=== PATIENT | female | born 1965 | race Caucasian/White ===

== ENCOUNTER → 2019-05-30 | Outpatient (CLI) | payer OTHER ==
--- NOTE | 2019-05-30 13:05 | MR ---
EXAMINATION TYPE: MR shoulder RT wo con DATE OF EXAM: 05/30/2019 COMPARISON: Plain film 05/22/2019 HISTORY: Pain in right shoulder TECHNIQUE: Multiplanar, multisequence imaging of the right shoulder is performed without contrast. FINDINGS: Rotator Cuff: There is some increased signal associated with the rotator cuff tendon near its inserti on, difficult to exclude a partial undersurface tear, there is likely tendinosis. Acromioclavicular Joint: Hypertrophic changes present at the acromioclavicular joint. Glenohumeral Joint: Intact Labrum: The labrum appears grossly intact given limitation of non-arthrogram study. Biceps Tendon: The long head of biceps is in normal location within bicipital groove. There is some f luid signal coursing along the long head of biceps tendon Bone marrow signal: There is abnormal low signal within the humeral head in the subchondral location, some local remodeling is present, some serpiginous low signal on T1 and T2 weighted sequences as wel l as intermediate signal on T1 and abnormal increased signal on T2-weighted sequences within the anais ral head suggests osteonecrosis, difficult to exclude some mild collapse Other: There is fluid in the subacromial subdeltoid bursa. IMPRESSION: Findings suggest osteonecrosis with possible microtrabecular fractures, humeral head remodeling possi thomas related to collapse. There may be some associated rotator cuff tendinosis as described.
== END | disposition home or self-care (01) ==
LOC: RADMRIMAIN 11:09
PROVIDERS: ATTEND Orthopaedic Surgery
DX: M25.511 Pain in right shoulder (principal)

== ENCOUNTER → 2019-06-07 | Outpatient (CLI) | payer OTHER ==
--- NOTE | 2019-06-07 09:59 | XR ---
EXAMINATION TYPE: XR chest 2V DATE OF EXAM ORDERED: 06/07/2019 HISTORY: Z01.818/M87.011. REFERENCE: None. FINDINGS: The lungs are clear. Pleural spaces are clear. Heart size is normal. IMPRESSION: NORMAL CHEST.
[2019-06-07 10:49] LABS: Basophils # (A) 0.1 k/uL (0-0.2); Basophils % (A) 1 %; Eosinophils # (A) 0.1 k/uL (0-0.7); Eosinophils % (A) 2 %; HCT 42.6 % (34.0-46.0); HGB 14.1 gm/dL (11.4-16.0); Lymphocytes # (A) 2.3 k/uL (1.0-4.8); Lymphocytes % (A) 36 %; MCH 36.4 pg (25.0-35.0); MCHC 33.1 g/dL (31.0-37.0); Macrocytosis Marked; Mean Platelet Volume 7.6; Monocytes # (A) 0.3 k/uL (0-1.0); Monocytes % (A) 5 %; Neutrophils # (A) 3.4 k/uL (1.3-7.7); Neutrophils % (A) 54 %; Platelet Count 180 k/uL (150-450); RBC 3.87 m/uL (3.80-5.40); RDW 13.9 % (11.5-15.5); WBC 6.4 k/uL (3.8-10.6)
== END | disposition home or self-care (01) ==
LOC: LABPAT 09:24
PROVIDERS: ATTEND Orthopaedic Surgery
DX: Z01.818 Encounter for other preprocedural examination (principal); Z01.812 Encounter for preprocedural laboratory examination; M87.011 Idiopathic aseptic necrosis of right shoulder
CPT/HCPCS: 36415; 71046; 80051; 85025; 93005

== ENCOUNTER 2019-06-24 08:30 | Inpatient (IN) | payer OTHER ==
[2019-06-13 12:47] VITALS: BMI 26.2
--- NOTE | 2019-06-23 08:49 | HP ---
HISTORY AND PHYSICAL CHIEF COMPLAINT: Right shoulder pain. HISTORY OF PRESENT ILLNESS: Patient is a 54-year-old, right-hand dominant, unemployed female who presents with progressive right shoulder pain worsening over the past 6 months. She is having a difficult time with any overhead activity. She also notes significant night symptoms. She has stiffness and pain with normal everyday activities. She has been taking Dawson 4 times a day. She has a history of chronic steroid use along with heavy alcohol use. PAST MEDICAL HISTORY: Significant for depression. PAST SURGICAL HISTORY: Significant for colonoscopy and hysterectomy. CURRENT MEDICATIONS: 1. Baclofen. 2. Celexa. 3. Effexor. 4. Klonopin. 5. Dawson. 6. Seroquel. ALLERGIES: She has allergies to BACTRIM. FAMILY HISTORY: Significant for cancer. SOCIAL HISTORY: Significant for previous tobacco use. She also admits to heavy alcohol use. REVIEW OF SYSTEMS: Sixteen-point review of systems otherwise reviewed and is noncontributory. PHYSICAL EXAMINATION: On examination, the patient is approximately 5 feet 3 inches, 150 pounds of mesomorphic habitus. HEENT exam is nonfocal. Neck is supple. She is tender about the anterior glenohumeral joint on the right. She has moderate subacromial crepitus. Active range of motion forward elevation 160 degrees, external rotation with arm at side 60 degrees, internal rotation to L2. Motor strength is 5 minus over 5 for abduction and external rotation. Impingement test, Neer test, and Speed test are positive. Her distal neurovascular exam otherwise appears to be intact in the right upper extremity. MRI report 05/30/2019 of the right shoulder shows evidence of avascular necrosis involving the humeral head. The rotator cuff appears intact. IMPRESSION: 1. 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 2. Bipolar depression. RECOMMENDATIONS: I talked to the patient at length regarding her condition along with treatment options. At this point, she is quite symptomatic and opts to proceed with surgery. We will plan to proceed with right shoulder hemiarthroplasty. Risks and benefits were discussed at length in layman's terms. MMODL / IJN: [id number] /
[~2019-06-24 08:30] MED LIST: ACETAMINOPHEN TAB 500 MG TAB PO ONE; DEXAMETHASONE SOD PHOSPHATE 10 MG/ML 1 ML VIAL IV ONE; HYDROmorphone 0.5 MG/0.5 ML SYRINGE IVP PRN; MELOXICAM 7.5 MG TAB PO ONE; MIDAZOLAM 2 MG/2 ML VIAL IV PRN; ONDANSETRON 4 MG/2 ML VIAL IVP ONE; SCOPOLAMINE 1.5MG/72HR PATCH TRANSDERM ONE; TRANEXAMIC ACID 1,000 MG in SODIUM CHLORIDE 0.9% 100 ML IVPB ONE
[2019-06-24] MEDS: LACTATED RINGERS 1,000 ML IV SCH (09:13)
[2019-06-24] MEDS ORDERED: ONDANSETRON 4 MG/2 ML VIAL IVP ONE (09:14)
[2019-06-24] MEDS ORDERED: DEXAMETHASONE SOD PHOSPHATE 10 MG/ML 1 ML VIAL IV ONE (09:14)
[2019-06-24] MEDS ORDERED: SODIUM CHLORIDE 0.9% 100 ML BAG ONE (11:05)
[2019-06-24] MEDS ORDERED: fentaNYL (PF) 50 MCG/ML 2 ML AMP ONE (11:05)
[2019-06-24] MEDS ORDERED: LIDOCAINE 1% INJ 10MG/ML (20 ML MDV) ONE (11:05)
[2019-06-24] MEDS ORDERED: TRANEXAMIC ACID 1,000 MG/10 ML VIAL ONE (11:05)
[2019-06-24] MEDS ORDERED: PROPOFOL 10 MG/ML 20 ML VIAL IV ONE (11:05)
[2019-06-24] MEDS ORDERED: SUCCINYLCHOLINE CHLORIDE 100 MG/5 ML SYR IV ONE (11:05)
[2019-06-24] MEDS ORDERED: ROPIVACAINE 5 MG/ML 30 ML VIAL ONE (11:05)
[2019-06-24] MEDS ORDERED: MIDAZOLAM 2 MG/2 ML VIAL ONE (11:05)
[2019-06-24] MEDS ORDERED: LACTATED RINGERS 1,000 ML IV ONE (12:37)
[2019-06-24] MEDS ORDERED: ONDANSETRON 4 MG/2 ML VIAL IVP PRN (12:41)
--- NOTE | 2019-06-24 12:57 | P.ANPRN ---
Procedure Note - Anesthesia - Nerve Block Performed Right Interscalene Date of Procedure: 06/24/19 Procedure Start Time: 09:24 Procedure Stop Time: 09:41 Location of Patient Procedure: PreOp Indication: Acute Post-Operative Pain, Requested by physician (Fadi) Sedation Type: Sedate with meaningful contact maintained Preparation: Sterile Prep Position: Supine Catheter: None Needle Types: Pajunk (22g) Technique: Ultrasound Injectate: 0.5% Ropivacaine (see comment for volume) (20cc, decadron 4mg) Blood Aspirated: No Pain Paresthesia on Injection Noted: No Resistance on Injection: Normal Events: Uneventful and Well Tolerated
--- NOTE | 2019-06-24 13:04 | P.OP ---
Date of Procedure: 06/24/19 Preoperative Diagnosis: Right humeral head avascular necrosis Postoperative Diagnosis: Same Procedure(s) Performed: Right shoulder hemiarthroplastypress-fit Implants: [employer] size 10/standard metaphysis/135 with 44 x 15 mm eccentric humeral head Anesthesia: denis HOLT Surgeon: Anshu Aponte Machine Setter And Repairer #1: Peng Thompson Estimated Blood Loss (ml): 150 Pathology: other (Humeral head) Condition: stable Disposition: PACU Indications for Procedure: The patient's a 54-year-old female who presents with progressive right shoulder pain secondary to avascular necrosis of the humeral head likely from chronic steroid use/alcohol use. A discussion of the risks and benefits of operative intervention was made with patient. She opted to proceed with surgery. Operative risks to include infection, neurovascular injury, development of blood clots, possible component loosening, possible instability, possible progression of arthritis was discussed. Informed consent was obtained. Operative Findings: As below Description of Procedure: The patient was brought to the operating room, and after induction of general anesthesia was placed in a beachchair position. The bony prominences were appropriately padded. The proposed incision site was outlined with a skin marker just lateral to the coracoid process. Skin was incised sharply. Subcutaneous tissues were divided bluntly. Electrocautery was used for hemostasis. The deltopectoral interval was identified and the cephalic vein was gently retracted laterally with the deltoid. Subdeltoid adhesions were bluntly dissected. The upper one third of the pectoralis major was released to facilitate exposure. The biceps was identified in the rotator interval opened. The biceps was tenotomized and lateral track distally. The cortical brachialis fascia was then opened and the conjoined tendon gently retracted medially with a self-retaining retractor. A lesser tuberosity osteotomy was performed with a sagittal saw. The capsule was then released from the humeral neck subperiosteally. The humeral head was exposed. The shoulder was dislocated. A starting hole was made in line with the humeral shaft and the canal reamed by hand up to a size 10. The cutting guide was then placed planning on 30 of retroversion. The humeral head cut was then made. This bone was sent for pathology. There appeared to be subchondral collapse. The proximal humerus was then prepared with the appropriate broach. A trial size 10/standard neck along with a 44 elevator by 15 mm eccentric head was placed. The shoulder was gently reduced. It was taken through range of motion. It was felt to be stable in flexion and extension with internal and external rotation. I felt there was adequate catholic of soft tissue tension. The shoulder was gently dislocated. The biceps was released from the superior labrum. The labrum and glenoid was inspected and the cartilage appeared to be adequate. 2 drill holes were made lateral in the proximal humerus for reattachment of the lesser tuberosity. The humeral stem was inserted again at 30 of retroversion was fully seated. There is good bone stock therefore cement was not utilized. There was good rotational stability. The 44 x 15 mm eccentric head was then placed and gently impacted. The shoulder was gently reduced. Again it was taken through range of motion felt to be stable. The lesser tuberosity osteotomy was reattached with #2 Ethibond suture. The rotator interval was closed in a similar fashion. Pulsatile lavage was utilized. The deltopectoral interval was closed with interrupted 2-0 Vicryl sutures. The skin was reapproximated with 3-0 subcuticular Prolene suture. Steri-Strips were applied. Sterile dressing was applied in addition to a sling. Patient was awoken from general anesthesia and transferred to recovery room in good condition. Blood loss was estimated at 150 mL. No complications were incurred. Sponge and needle counts were correct in the case. Rod KNOX assisted during the case to include exposure, bone preparation, implantation, and closure.
--- NOTE | 2019-06-24 15:05 | XR ---
EXAMINATION TYPE: XR shoulder complete RT DATE OF EXAM: 06/24/2019 COMPARISON: NONE HISTORY: Postop TECHNIQUE: Frontal view of the shoulder is obtained. FINDINGS: Right shoulder arthroplasty with intramedullary component well-seated within the cavity. No periprosthetic lucency or fracture. Visualized portions of the right lung is clear. IMPRESSION: Right shoulder arthroplasty.
[2019-06-24] MEDS ORDERED: LORazepam 1 MG TAB PO STA (17:53)
--- NOTE | 2019-06-24 17:53 | P.CONS ---
History of Present Illness - Reason for Consult Consult date: 06/24/19 neuropathy Requesting physician: Anshu Aponte - Chief Complaint right shoulder pain - History of Present Illness Patient is a 54-year-old female with a past medical history of chronic back and neck pain, optic neuritis, osteoporosis, depression, restless legs syndrome, neuropathy, and chronic alcohol abuse who presented for elective right shoulder hemiarthroplasty. Patient tolerated procedure well. Patient seen and examined at bedside. She reports that her last drink was 4 days ago she typically drinks 1-2 mixed drinks daily during the week and 3 mixed drinks on the weekend. She has noted some sweating as well as restlessness. She reports no recent cough, cold, fever, chills, nausea, vomiting, or diarrhea. She has chronic issues with urinary retention for the last 2 months and has planned procedure to treat her lumbar disc herniation which her physician has determined is likely causing this. She reports that she has no history of alcohol withdrawals in the past. She has not had any issues stopping alcohol prior but is noting significant diaphoresis. She denies any nausea, vomiting, lightheadedness, dizziness, chest pain, shortness of breath after surgery. Her right arm is still numb. Review of Systems Pertinent positives and negatives as discussed in HPI, a complete review of systems was performed and all other systems are negative. Past Medical History Past Medical History: Eye Disorder, Musculoskeletal Disorder, Osteoarthritis (OA) Additional Past Medical History / Comment(s): optic neuritis eyes-sight mostly gone right eye, herniated discs in neck & back with neuropathy, osteoporosis, Restless leg, restless leg syndrome, osteoporosis, bilateral ocular hypertension, arthritis History of Any Multi-Drug Resistant Organisms: None Reported Past Surgical History: Heart Catheterization (2, no intervention needed), Hysterectomy Additional Past Surgical History / Comment(s): EGD w/dilatation, colonoscopy Past Anesthesia/Blood Transfusion Reactions: No Reported Reaction Past Psychological History: Anxiety, Depression Smoking Status: Former smoker Past Alcohol Use History: Heavy, Occasional Additional Past Alcohol Use History / Comment(s): Drinks 1-2 mixed drinks daily and 3-4 drinks on the weekends Past Drug Use History: Marijuana Additional Drug Use History / Comment(s): rare use - Past Family History Brother(s) Family Medical History: Cancer Additional Family Medical History / Comment(s): brain, stomach Sister(s) Family Medical History: Cancer Additional Family Medical History / Comment(s): brain Medications and Allergies Home Medications Medication Instructions Recorded Confirmed Type Baclofen [Lioresal] 20 mg PO TID 06/13/19 06/24/19 History Citalopram Hydrobromide [CeleXA] 10 mg PO DAILY 06/13/19 06/24/19 History HYDROcodone/APAP 7.5-325MG [[place] 1 tab PO QID 06/13/19 06/24/19 History 7.5-325] QUEtiapine [SEROquel] 25 mg PO HS 06/13/19 06/24/19 History Venlafaxine HCl [Effexor XR] 150 mg PO HS 06/13/19 06/24/19 History clonazePAM [KlonoPIN] 3 mg PO HS 06/13/19 06/24/19 History Venlafaxine HCl [Effexor XR] 75 mg PO HS 06/24/19 06/24/19 History Allergies Allergy/AdvReac Type Severity Reaction Status Date / Time sulfamethoxazole Allergy Rash/Hives Verified 06/24/19 15:53 [From Bactrim] trimethoprim [From Bactrim] Allergy Rash/Hives Verified 06/24/19 15:53 Physical Exam Osteopathic Statement: *. No significant issues noted on an osteopathic structural exam other than those noted in the History and Physical/Consult. Vitals: Vital Signs Temp Pulse Pulse Resp BP Pulse Ox 06/24/19 16:50 98 F 81 16 108/75 94 L 06/24/19 15:30 83 16 95/73 94 L 06/24/19 15:00 86 16 97/73 94 L 06/24/19 14:45 86 16 103/70 93 L 06/24/19 14:30 88 16 102/72 93 L 06/24/19 14:15 88 16 94/67 92 L 06/24/19 14:00 90 16 102/66 93 L 06/24/19 13:42 91 16 105/70 93 L 06/24/19 13:27 87 16 106/68 100 06/24/19 13:12 92 18 106/61 100 06/24/19 12:57 97.1 F L 100 18 105/64 99 06/24/19 09:39 75 17 109/72 98 08/13/19 09:01 97.8 F 76 17 126/79 96 Intake and Output 06/24/19 06/24/19 06/24/19 06:59 14:59 22:59 Intake Total 1150 150 Output Total 150 Balance 1000 150 Intake: IV 1150 150 Output: Estimated Blood Loss 150 Other: Weight 67.642 kg General: non toxic, no distress, appears at stated age, normal weight Derm: no unusual rashes/lesions no unusual ecchymoses, warm, dry Head: atraumatic, normocephalic, symmetric Eyes: EOMI, no lid lag, anicteric sclera, pupils equal round reactive to light ENT: Nose and ears atraumatic, no thrush, no pharyngeal erythema Neck: No thyromegaly, no cervical lymphadenopathy, trachea midline, supple Mouth: no lip lesion, mucus membranes moist Cardiovascular: S1S2 reg, no murmur, positive posterior tibial pulse bilateral, no edema, capillary refill less than 2 seconds Lungs: Breath sounds bilateral, no rhonchi, no rales , no accessory muscle use Abdominal: soft, nontender to palpation, no guarding, no appreciable organomegaly, normal bowel sounds Ext: no gross muscle atrophy, muscle strength 5 out of 5 bilateral lower extremities grossly and left upper, no contractures, Neuro: CN II-XI grossly intact, finger to nose within normal limits, Psych: Alert, oriented, appropriate affect Assessment and Plan Assessment: Patient is a 54-year-old female status post right shoulder hemiarthroplasty due to to avascular necrosis. Alcohol abuse with impending withdrawal -Start thiamine and folic acid -Librium 10 mg 1 now and [facility] protocol -Check potassium and magnesium in the morning Bipolar depression -Resume home medications Chronic low back and neck pain with neuropathy -Resume baclofen, [place] Chronic: Osteoporosis, optic neuritis, right ocular hypertension, restless leg syndrome Thank you for allowing us to participate in the care of this patient. We will follow peripherally. Do not hesitate to contact us with questions. Someone can be reached from the [facility] hospitalist group at all hours of the day at [phone].
[2019-06-24] MEDS ORDERED: LORazepam 2 MG/ML INJ IV PRN ×2 (17:54)
[2019-06-24] MEDS: traMADol 50 MG TAB PO SCH ×3 (18:17→21:03)
[2019-06-24] MEDS: THIAMINE 100 MG TAB PO SCH ×2 (18:21→18:22)
[2019-06-24] MEDS: VENLAFAXINE HCL ER 150 MG CAP PO SCH (21:04)
[2019-06-24] MEDS: QUEtiapine 25 MG TAB PO SCH (21:04)
[2019-06-24] MEDS: VENLAFAXINE HCL ER 75 MG CAP PO SCH (21:04)
[2019-06-24] MEDS: clonazePAM 1 MG TAB PO SCH (21:05)
[2019-06-24] MEDS: BACLOFEN 10 MG TAB PO SCH (21:06)
[2019-06-24] MEDS: HYDROcodone/APAP 7.5-325MG 1 EACH TAB PO PRN (22:23)
[2019-06-25] MEDS: LACTATED RINGERS 1,000 ML IV SCH (02:05)
[2019-06-25] MEDS: HYDROcodone/APAP 7.5-325MG 1 EACH TAB PO PRN ×3 (06:18→16:58)
[2019-06-25] MEDS: THIAMINE 100 MG TAB PO SCH ×2 (07:30→16:59)
[2019-06-25] MEDS: traMADol 50 MG TAB PO SCH ×4 (07:30→21:07)
[2019-06-25] MEDS: CITALOPRAM HYDROBROMIDE 10 MG TAB PO SCH (07:30)
[2019-06-25] MEDS: ENOXAPARIN 40 MG/0.4 ML SYRINGE SQ SCH (07:31)
[2019-06-25] MEDS: BACLOFEN 10 MG TAB PO SCH ×3 (07:33→21:08)
[2019-06-25 08:04] LABS: African American GFR (CKD) >90 (>60 ml/min/1.73 sqM); Glucose 136 mg/dL (74-99); Magnesium 1.6 mg/dL (1.6-2.3); Potassium 4.5 mmol/L (3.5-5.1); Sodium 141 mmol/L (137-145)
[2019-06-25 08:20] LABS: Anion Gap 11 mmol/L; Blood Urea Nitrogen 16 mg/dL (7-17); Calcium 9.6 mg/dL (8.4-10.2); Carbon Dioxide 23 mmol/L (22-30); Chloride 107 mmol/L (98-107)
[2019-06-25 08:28] LABS: Basophils % (A) 0 %; Eosinophils % (A) 0 %; HCT 35.1 % (34.0-46.0); HGB 11.2 gm/dL (11.4-16.0); Lymphocytes # (A) 0.9 k/uL (1.0-4.8); Lymphocytes % (A) 7 %; MCH 34.5 pg (25.0-35.0); MCHC 31.9 g/dL (31.0-37.0); MCV 108.1 fL (80.0-100.0); Macrocytosis Moderate; Mean Platelet Volume 8.8; Monocytes # (A) 0.4 k/uL (0-1.0); Monocytes % (A) 3 %; Neutrophils # (A) 11.3 k/uL (1.3-7.7); Neutrophils % (A) 89 %; Platelet Count 190 k/uL (150-450); RBC 3.24 m/uL (3.80-5.40); RDW 13.2 % (11.5-15.5); WBC 12.7 k/uL (3.8-10.6)
--- NOTE | 2019-06-25 11:07 | P.PN ---
Subjective Progress Note Date: 06/25/19 Principal diagnosis: Status post right shoulder hemiarthroplasty Patient evaluated today at bedside, she is resting comfortably. She states the block is started to wear off and the right upper extremity. Patient did note she had a fall early this morning when attempting to get out of bed, I also discussed this with nursing. She was able to catch herself with the left arm. She notes no worsening of her acute pain involving the right upper extremity. Currently denies any chest pain or shortness of breath. Objective - Vital Signs Vital signs: Vital Signs Temp 97.8 F 06/25/19 07:00 Pulse 70 06/25/19 07:00 Resp 16 06/25/19 07:40 BP 97/67 06/25/19 07:00 Pulse Ox 98 06/25/19 07:00 Intake & Output 06/24/19 06/25/19 06/25/19 18:59 06:59 18:59 Intake Total 1300 1020 Output Total 150 300 Balance 1150 720 Weight 67.642 kg Intake: IV 1300 Intake, IV Titration 820 Amount Lactated Ringers 1,000 ml 720 @ 80 mls/hr IV .[id number] JÚNIOR Rx#:[id number] ceFAZolin 2 gm In Sodium 100 Chloride 0.9% 50 ml @ 100 mls/hr IVPB Q8H [facility] Rx#: [id number] Oral 200 Output: Urine 300 Estimated Blood Loss 150 Other: Voiding Method Incontinent # Voids 2 - Exam Right upper extremity: Initial postoperative bandage removed, Steri-Strips and Prolene suture in good position Soft tissue swelling and ecchymosis present throughout the anterior shoulder and into the anterior upper arm Her sensory exam to light touch throughout the extremities intact, radial pulses 2+ - Labs CBC & Chem 7: 06/25/19 06:40 06/25/19 06:40 Labs: Abnormal Lab Results - Last 24 Hours (Table) 06/25/19 06/25/19 Range/Units 06:40 06:40 WBC 12.7 H (3.8-10.6) k/uL RBC 3.24 L (3.80-5.40) m/uL Hgb 11.2 L (11.4-16.0) gm/dL MCV 108.1 H (80.0-100.0) fL Neutrophils # 11.3 H (1.3-7.7) k/uL Lymphocytes # 0.9 L (1.0-4.8) k/uL Glucose 136 H (74-99) mg/dL Assessment and Plan Plan: Assessment: Postoperative day #1 status post right shoulder hemiarthroplasty Plan: Pain control, continue oral medication as needed GI and DVT prophylaxis, continue current medication Continue use of arm sling and pendular exercises Icing of the right upper extremity often Medical recommendations Discharge planning: Plan for discharge home tomorrow Time with Patient: Less than 30
[2019-06-25] MEDS: LORazepam 2 MG/ML INJ IV PRN (11:29)
[2019-06-25] MEDS: PANTOPRAZOLE 40 MG TABLET PO SCH (11:29)
--- NOTE | 2019-06-25 17:17 | P.PN ---
Subjective Progress Note Date: 06/25/19 (Delayed charting patient seen on 11:15) Principal diagnosis: Right arm pain Patient is a 54-year-old female with a past medical history of chronic back and neck pain, optic neuritis, osteoporosis, depression, restless legs syndrome, neuropathy, and chronic alcohol abuse who presented for elective right shoulder hemiarthroplasty. Patient tolerated procedure well. She did attempt to ambulate after surgery on 06/24 had a fall where she shock her head. She did not follow any neurologic deficits. Patient seen and examined at bedside. She denies any headache, numbness, or tingling. She is having some tremor, diaphoresis, and anxiety. She denies any chest pain or shortness of breath. She does report some lightheadedness when standing. Objective - Vital Signs Vital signs: Vital Signs Temp 97.9 F 06/25/19 14:03 Pulse 83 06/25/19 14:03 Resp 16 06/25/19 14:03 BP 147/66 06/25/19 14:02 Pulse Ox 90 L 06/25/19 14:03 Intake & Output 06/24/19 06/25/19 06/25/19 18:59 06:59 18:59 Intake Total 1300 1020 Output Total 150 300 250 Balance 1150 720 -250 Weight 67.642 kg Intake: IV 1300 Intake, IV Titration 820 Amount Lactated Ringers 1,000 ml 720 @ 80 mls/hr IV .[id number] JÚNIOR Rx#:[id number] ceFAZolin 2 gm In Sodium 100 Chloride 0.9% 50 ml @ 100 mls/hr IVPB Q8H JÚNIOR Rx#: [id number] Oral 200 Output: Urine 300 250 Estimated Blood Loss 150 Other: Voiding Method Incontinent # Voids 2 - Exam General: non toxic, no distress, appears at stated age Derm: warm, dry Head: atraumatic, normocephalic, symmetric Eyes: EOMI, no lid lag, anicteric sclera Mouth: no lip lesion, mucus membranes moist Cardiovascular: S1S2 reg, no murmur, positive posterior tibial pulse bilateral, Lungs: CTA bilateral, no rhonchi, no rales , no accessory muscle use Abdominal: soft, nontender to palpation, no guarding, no appreciable or ganomegaly Ext: Right arm in sling., no gross muscle atrophy, no edema, no contractures Neuro: CN II-XI grossly intact, no focal neuro deficits Psych: Alert, oriented, appears anxious - Labs CBC & Chem 7: 06/25/19 06:40 06/25/19 06:40 Labs: Abnormal Lab Results - Last 24 Hours (Table) 06/25/19 06/25/19 Range/Units 06:40 06:40 WBC 12.7 H (3.8-10.6) k/uL RBC 3.24 L (3.80-5.40) m/uL Hgb 11.2 L (11.4-16.0) gm/dL MCV 108.1 H (80.0-100.0) fL Neutrophils # 11.3 H (1.3-7.7) k/uL Lymphocytes # 0.9 L (1.0-4.8) k/uL Glucose 136 H (74-99) mg/dL Assessment and Plan Assessment: Patient is a 54-year-old female status post right shoulder hemiarthroplasty due to to avascular necrosis. Alcohol abuse with impending withdrawal -thiamine and folic acid -[facility] protocol Bipolar depression -Resume home medications Acute blood loss anemia - anticipated outcome if surgery - follow CBC - should resolve without specific intervention Chronic low back and neck pain with neuropathy -Resume baclofen, [place] Fall -No focal neuro deficits -Headache is resolved GERD - start PPI Lightheadedness -Likely secondary to pain medications -Check orthostatics Chronic: Osteoporosis, optic neuritis, right ocular hypertension, restless leg syndrome DVT prophylaxis: Lovenox Discussed with: Patient, nursing Anticipated discharge: in AM Anticipated discharge place: home A total of 25 minutes was spent on the care of this complex patient more than 50% of the time was spent in counseling and care coordination.
[2019-06-25] MEDS: VENLAFAXINE HCL ER 150 MG CAP PO SCH (21:07)
[2019-06-25] MEDS: QUEtiapine 25 MG TAB PO SCH (21:07)
[2019-06-25] MEDS: VENLAFAXINE HCL ER 75 MG CAP PO SCH (21:07)
[2019-06-25] MEDS: clonazePAM 1 MG TAB PO SCH (21:08)
[2019-06-26] MEDS: LACTATED RINGERS 1,000 ML IV SCH (06:33)
[2019-06-26] MEDS: BACLOFEN 10 MG TAB PO SCH (07:48)
[2019-06-26] MEDS: HYDROcodone/APAP 7.5-325MG 1 EACH TAB PO PRN ×3 (07:48→20:07)
[2019-06-26] MEDS: traMADol 50 MG TAB PO SCH ×2 (07:48→12:40)
[2019-06-26] MEDS: THIAMINE 100 MG TAB PO SCH ×2 (07:48→16:18)
[2019-06-26] MEDS: ENOXAPARIN 40 MG/0.4 ML SYRINGE SQ SCH (07:49)
[2019-06-26] MEDS: CITALOPRAM HYDROBROMIDE 10 MG TAB PO SCH (07:49)
[2019-06-26] MEDS: PANTOPRAZOLE 40 MG TABLET PO SCH (07:49)
[2019-06-26] MEDS: LORazepam 2 MG/ML INJ IV PRN ×4 (09:14→21:56)
--- NOTE | 2019-06-26 11:50 | CT ---
EXAMINATION TYPE: CT brain wo con DATE OF EXAM: 06/26/2019 COMPARISON: None HISTORY: altered mental status CT DLP: 1070.[address] of the head is obtained. The ventricles, basal cisterns and sulci overlying the conve xities are consistent with the patient's age. The calvarium is intact. No midline shift. IMPRESSION: 1. No evidence of acute hemorrhage or mass effect. If symptoms persist or there is continued clinica l concern for acute ischemia correlate with MRI.
--- NOTE | 2019-06-26 11:53 | XR ---
EXAMINATION TYPE: XR chest 1V portable DATE OF EXAM: 06/26/2019 COMPARISON: 06/07/2019 HISTORY: Shortness of breath TECHNIQUE: Single frontal view of the chest is obtained. FINDINGS: There is a new right perihilar opacity and right hemidiaphragm elevation. Large hiatal her polo as increased in size from the prior. Hazy retrocardiac airspace disease likely represents atelect asis. Remainder the lungs are clear. No sizable pneumothorax. Humeral arthroplasty is noted. IMPRESSION: 1. New right perihilar airspace disease with right hemidiaphragm elevation indicating volume loss the refore the opacity likely represents atelectasis although pneumonia is possible in the proper clinica l setting. 2. Enlarging hiatal hernia/partial intrathoracic stomach. Surrounding opacity likely represents atele ctasis.
--- NOTE | 2019-06-26 12:24 | P.PN ---
Subjective Progress Note Date: 06/26/19 Principal diagnosis: Status post right shoulder hemiarthroplasty Patient evaluated today at bedside, she is slightly agitated. Withdrawal symptoms are beginning, she is on CIWA protocol. Currently denies any chest pain or shortness of breath. Objective - Vital Signs Vital signs: Vital Signs Temp 97.9 F 06/26/19 07:00 Pulse 71 06/26/19 07:00 Resp 16 06/26/19 07:40 BP 120/72 06/26/19 07:00 Pulse Ox 90 L 06/26/19 09:51 Intake & Output 06/25/19 06/26/19 06/26/19 18:59 06:59 18:59 Intake Total 596 530 Output Total 250 Balance 346 530 Intake: Intake, IV Titration 480 Amount Lactated Ringers 1,000 ml 480 @ 80 mls/hr IV .[id number] JÚNIOR Rx#:[id number] Oral 596 50 Output: Urine 250 Other: Voiding Method Toilet Toilet # Voids 2 - Exam Right upper extremity: Steri-Strips and Prolene suture in good position Soft tissue swelling and ecchymosis present throughout the anterior shoulder and into the anterior upper arm Her sensory exam to light touch throughout the extremities intact, radial pulses 2+ - Labs CBC & Chem 7: 06/25/19 06:40 06/25/19 06:40 Assessment and Plan Plan: Assessment: Postoperative day #2 status post right shoulder hemiarthroplasty Plan: Pain control, continue oral medication as needed GI and DVT prophylaxis, continue current medication Continue use of arm sling and pendular exercises Icing of the right upper extremity often Medical recommendations Discharge planning: Plan for discharge home when stable Time with Patient: Less than 30
[2019-06-26] MEDS ORDERED: BISACODYL 5 MG TABLET.DR PO STA (15:13)
--- NOTE | 2019-06-26 16:38 | P.PN ---
Subjective Progress Note Date: 06/26/19 (dealyed charting seen at 1300) Principal diagnosis: Right arm pain Patient is a 54-year-old female with a past medical history of chronic back and neck pain, optic neuritis, osteoporosis, depression, restless legs syndrome, neuropathy, and chronic alcohol abuse who presented for elective right shoulder hemiarthroplasty. Patient tolerated procedure well. She did attempt to ambulate after surgery on 06/24 had a fall where she shock her head. She did not follow any neurologic deficits. Worsening confusion on the morning of 06/26. CT hear without acute abnormality. Patient seen and examined at bedside. Admits to confusion with hallucinations today. Pain is currently well controlled. No chest pain, shortness breath, nausea, or vomiting. Objective - Vital Signs Vital signs: Vital Signs Temp 98.2 F 06/26/19 14:18 Pulse 82 06/26/19 14:18 Resp 14 06/26/19 14:18 BP 119/72 06/26/19 14:18 Pulse Ox 96 06/26/19 14:18 Intake & Output 06/25/19 06/26/19 06/26/19 18:59 06:59 18:59 Intake Total 596 530 Output Total 250 Balance 346 530 Intake: Intake, IV Titration 480 Amount Lactated Ringers 1,000 ml 480 @ 80 mls/hr IV .[id number] JÚNIOR Rx#:[id number] Oral 596 50 Output: Urine 250 Other: Voiding Method Toilet Toilet # Voids 2 2 - Exam General: non toxic, no distress, appears at stated age Derm: warm, dry Head: atraumatic, normocephalic, symmetric Eyes: EOMI, no lid lag, anicteric sclera Mouth: no lip lesion, mucus membranes moist Cardiovascular: S1S2 reg, no murmur, positive posterior tibial pulse bilateral, Lungs: decreased bs bilateral, no rhonchi, no rales , no accessory muscle use Abdominal: soft, nontender to palpation, no guarding, no appreciable organomegaly Ext: Right arm in sling., no gross muscle atrophy, no edema, no contractures Neuro: CN II-XI grossly intact, no focal neuro deficits, no tremors Psych: Alert, confused, lethargic - Labs CBC & Chem 7: 06/25/19 06:40 06/25/19 06:40 Assessment and Plan Assessment: Patient is a 54-year-old female status post right shoulder hemiarthroplasty due to to avascular necrosis. Post op management per ortho Metabolic encephalopathy - head CT negative - check stat CBC, BMP, Ammonia, and UA - stop tramadol, baclofen, and klonopin and use ativan as needed for ETOH withdrawals Atelectasis - IS - frequent turns Alcohol abuse with impending withdrawal -thiamine and folic acid -CIWA protocol Acute blood loss anemia - anticipated outcome if surgery - follow CBC - should resolve without specific intervention Bipolar depression -continue current medications Chronic low back and neck pain with neuropathy -hold baclofen and tramadol Fall -No focal neuro deficits -Headache is resolved GERD - PPI Lightheadedness -Likely secondary to pain medications -Check orthostatics negative Chronic: Osteoporosis, optic neuritis, right ocular hypertension, restless leg syndrome DVT prophylaxis: Lovenox Discussed with: Patient, nursing Anticipated discharge: 1-[address]: home A total of 35 minutes was spent on the care of this complex patient more than 50% of the time was spent in counseling and care coordination.
[2019-06-26 17:03] LABS: HGB 10.9 gm/dL (11.4-16.0); Hypochromasia Moderate; MCH 36.8 pg (25.0-35.0); MCHC 33.1 g/dL (31.0-37.0); MCV 111.1 fL (80.0-100.0); Mean Platelet Volume 7.7; Platelet Count 154 k/uL (150-450); RBC 2.97 m/uL (3.80-5.40); WBC 9.9 k/uL (3.8-10.6)
[2019-06-26 17:05] LABS: Macrocytosis Moderate
[2019-06-26 17:15] LABS: ALT 15 U/L (9-52); AST 23 U/L (14-36); African American GFR (CKD) >90 (>60 ml/min/1.73 sqM); Albumin 3.8 g/dL (3.5-5.0); Alkaline Phosphatase 73 U/L (38-126); Anion Gap 8 mmol/L; Blood Urea Nitrogen 17 mg/dL (7-17); Calcium 9.2 mg/dL (8.4-10.2); Carbon Dioxide 26 mmol/L (22-30); Chloride 108 mmol/L (98-107); Glucose 91 mg/dL (74-99); Magnesium 1.6 mg/dL (1.6-2.3); Potassium 4.1 mmol/L (3.5-5.1); Sodium 142 mmol/L (137-145); Total Bilirubin 0.3 mg/dL (0.2-1.3); Total Protein 6.8 g/dL (6.3-8.2)
[2019-06-26 22:00] LABS: Appearance,Urine Clear (Clear); Bilirubin,Urine Negative (Negative); Blood,Urine Negative (Negative); Color,Urine Yellow; Glucose,Urine (UA) Negative (Negative); Ketones,Urine Negative (Negative); Leukocyte Esterase,Urine Negative (Negative); Nitrite,Urine Negative (Negative); PH, Urine 5.5 (5.0-8.0); Protein,Urine Trace (Negative); Specific Gravity,Urine 1.031 (1.001-1.035); Urobilinogen,Urine <2.0 mg/dL (<2.0)
[2019-06-26] MEDS: VENLAFAXINE HCL ER 75 MG CAP PO SCH (23:18)
[2019-06-26] MEDS: QUEtiapine 25 MG TAB PO SCH (23:18)
[2019-06-26] MEDS: VENLAFAXINE HCL ER 150 MG CAP PO SCH (23:18)
[2019-06-27] MEDS: HYDROcodone/APAP 7.5-325MG 1 EACH TAB PO PRN ×4 (02:28→23:41)
[2019-06-27] MEDS: LORazepam 2 MG/ML INJ IV PRN ×2 (03:52→18:09)
[2019-06-27] MEDS: LACTATED RINGERS 1,000 ML IV SCH (04:58)
[2019-06-27] MEDS: PANTOPRAZOLE 40 MG TABLET PO SCH (08:43)
[2019-06-27] MEDS: CITALOPRAM HYDROBROMIDE 10 MG TAB PO SCH (08:43)
[2019-06-27] MEDS: THIAMINE 100 MG TAB PO SCH ×2 (08:43→18:10)
[2019-06-27] MEDS: ENOXAPARIN 40 MG/0.4 ML SYRINGE SQ SCH (08:43)
--- NOTE | 2019-06-27 11:07 | P.PN ---
Subjective Progress Note Date: 06/27/19 Principal diagnosis: Status post right shoulder hemiarthroplasty Patient evaluated today at bedside. Patient doing better today, she is ambulate with therapy. Currently denies any chest pain or shortness of breath. Objective - Vital Signs Vital signs: Vital Signs Temp 98.3 F 06/27/19 07:00 Pulse 99 06/27/19 08:00 Resp 16 06/27/19 08:00 BP 111/74 06/27/19 07:00 Pulse Ox 93 L 06/27/19 07:00 Intake & Output 06/26/19 06/27/19 06/27/19 18:59 06:59 18:59 Intake Total 180 450 Balance 180 450 Intake: Oral 180 450 Other: Voiding Method Toilet Bedside Commode Bedside Commode # Voids 2 2 - Exam Right upper extremity: Steri-Strips and Prolene suture in good position Soft tissue swelling and ecchymosis present throughout the anterior shoulder and into the anterior upper arm Her sensory exam to light touch throughout the extremities intact, radial pulses 2+ - Labs CBC & Chem 7: 06/26/19 16:53 06/26/19 16:53 Labs: Abnormal Lab Results - Last 24 Hours (Table) 06/26/19 06/26/19 06/26/19 Range/Units 16:53 16:53 21:42 RBC 2.97 L (3.80-5.40) m/uL Hgb 10.9 L (11.4-16.0) gm/dL Hct 33.0 L (34.0-46.0) % MCV 111.1 H (80.0-100.0) fL MCH 36.8 H (25.0-35.0) pg Chloride 108 H (98-107) mmol/L Urine Protein Trace H (Negative) Assessment and Plan Plan: Assessment: Postoperative day #3 status post right shoulder hemiarthroplasty Plan: Pain control, we'll discharge on [place] 7.5 mg/325 mg. Prescribed enough medication until patient can get in to see her pain management doctor for refill on her [place] 7.5 mg/325 mg GI and DVT prophylaxis, aspirin 325 mg daily Continue use of arm sling and pendular exercises Icing of the right upper extremity often Medical recommendations Discharge planning: Plan for discharge home today Time with Patient: Less than 30
--- NOTE | 2019-06-27 11:12 | P.DS ---
Providers Date of admission: 06/24/19 08:30 Expected date of discharge: 06/27/19 Attending physician: Anshu Aponte Consults: 06/24/19 12:41 Consult Physician Routine Consulting Provider: Krista Chen Consult Reason/Comments: medical mangement Do you want consulting provider notified?: Yes Primary care physician: [facility] Course: Date of admission: 06/24/2019 Date of discharge: 06/27/2019 Admission diagnosis: Status post right shoulder hemiarthroplasty Discharge diagnosis: Same Attending physician: Dr. Aponte Surgical procedures: Right shoulder hemiarthroplasty Brief history: Patient is a 54-year-old female with a history of progressive right shoulder pain. It was determined that she had avascular necrosis involving the right humeral head. Treatment options were discussed, she elected to proceed with a right shoulder hemiarthroplasty on 06/24/2019. Hospital course: Details of patient's surgery can be found in operative report. Patient tolerated the procedure well and was subsequently transported to orthopedic floor. Patient's orthopeidc and medical care was provided daily. Patient had daily laboratory tests performed for evaluation of overall blood counts. Patient had daily physical therapy to include strengthening range of motion as well as education with walker ambulation. Patient was treated with Lovenox for their postoperative DVT prophylaxis during their inpatient stay. Patient was noted to have a relatively uneventful postoperative course. Patient reported satisfactory pain control with oral pain medications by postoperative day 0. Patient showed satisfactory progress with physical therapy. Patient moved steadily through the program and had no difficulty meeting the goals by postoperative day 3 . Given patient's otherwise satisfactory course and having met physical therapy goals, plan is to discharge patient home on postoperative day 3 Discharge condition/disposition: Patient will be discharged home in stable condition. Discharge medications: Instructions are given on resumption of patient's normal daily medications per primary care recommendation, in addition patient will be prescribed [place] 7.5 mg/325 mg, aspirin 325 mg. Discharge instructions: 1. Wound care and infection precautions, keep incision dry and covered while showering, no lotions, creams, moisturizers. No soaking, tubs, pools, hottubs. Do not scrub over the incision. 2. Utilize arm sling, pendular exercises daily 3. Ice and elevate when necessary. Do not exceed 20 minutes per hour with ice pack. 4. Visiting nursing care.. 5. Pain meds and anticoagulants per prescription. 6. Pain medication has potential to cause constipation. Increase oral fluid and fiber intake. Contact primary care provider if you have not had a bowel movement within 48 hours after discharge 7. No anti-inflammatory medication until discussed at first post operative visit, this including Motrin, Aleve, Mobic, Diclofenac 8. Follow up in office at 2 weeks postop with Rod Thompson PA-C 9. Follow up with your primary care doctor 7-10 days after discharge. 10. Contact [facility] with any questions, . Procedures: Right shoulder hemiarthroplasty Patient Condition at Discharge: Good Plan - Discharge Summary Discharge Rx Participant: Yes New Discharge Prescriptions: New Aspirin 325 mg PO DAILY #30 tab HYDROcodone/APAP 7.5-325MG [Liscomb 7.5] 1 - 2 each PO Q6HR PRN #56 tab PRN Reason: Pain No Action clonazePAM [KlonoPIN] 3 mg PO HS Citalopram Hydrobromide [CeleXA] 10 mg PO DAILY QUEtiapine [SEROquel] 25 mg PO HS Baclofen [Lioresal] 20 mg PO TID Venlafaxine HCl [Effexor XR] 150 mg PO HS Venlafaxine HCl [Effexor XR] 75 mg PO HS Discharge Medication List Baclofen [Lioresal] 20 mg PO TID 06/13/19 [History] Citalopram Hydrobromide [CeleXA] 10 mg PO DAILY 06/13/19 [History] QUEtiapine [SEROquel] 25 mg PO HS 06/13/19 [History] Venlafaxine HCl [Effexor XR] 150 mg PO HS 06/13/19 [History] clonazePAM [KlonoPIN] 3 mg PO HS 06/13/19 [History] Venlafaxine HCl [Effexor XR] 75 mg PO HS 06/24/19 [History] Aspirin 325 mg PO DAILY #30 tab 06/27/19 [Rx] HYDROcodone/APAP 7.5-325MG [Liscomb 7.5] 1 - 2 each PO Q6HR PRN #56 tab 06/27/19 [Rx] Follow up Appointment(s)/Referral(s): [facility], [NON-STAFF] - As Needed Peng Thompson PAC [PHYSICIAN SOCIAL WORK THERAPIST] - 07/11/19 9:30 am Activity/Diet/Wound Care/Special Instructions: Orthopedic discharge instructions: 1. Pain medication as needed 2. GI and DVT prophylaxis, aspirin 325 mg daily 3. Daily dressing changes, keep incision covered while showering 4. Icing of the right shoulder often 5. Pendular exercises daily, utilize arm sling 6. Contact [facility] any questions, 7. Plan for follow-up in the outpatient setting in 2 weeks Discharge Disposition: HOME WITH HOME HEALTH SERVICES
[2019-06-27] MEDS ORDERED: ACETAMINOPHEN TAB 325 MG TAB PO PRN (14:34)
[2019-06-27] MEDS ORDERED: KETOROLAC 30 MG/ML 1 ML VIAL IVP PRN (14:34)
--- NOTE | 2019-06-27 14:44 | P.PN ---
Subjective Progress Note Date: 06/27/19 Principal diagnosis: Right arm pain Patient is a 54-year-old female with a past medical history of chronic back and neck pain, optic neuritis, osteoporosis, depression, restless legs syndrome, neuropathy, and chronic alcohol abuse who presented for elective right shoulder hemiarthroplasty. Patient tolerated procedure well. She did attempt to ambulate after surgery on 06/24 had a fall where she shock her head. She did not follow any neurologic deficits. Worsening confusion on the morning of 06/26. CT hear without acute abnormality. Determined to be in DT's and required 4 doses of ativan on 06/26. Patient seen and examined at bedside. Still having some hallucinations today and thinks that her IV pole is Eyal. Still having some nausea. Having some tremor. With better this morning but is now back. Denies any diaphoresis, agitation, or fidgetiness. Worried about going home and her alcohol withdrawal worsening.. Objective - Vital Signs Vital signs: Vital Signs Temp 98.3 F 06/27/19 07:00 Pulse 99 06/27/19 08:00 Resp 16 06/27/19 08:00 BP 111/74 06/27/19 07:00 Pulse Ox 93 L 06/27/19 07:00 Intake & Output 06/26/19 06/27/19 06/27/19 18:59 06:59 18:59 Intake Total 180 450 Balance 180 450 Intake: Oral 180 450 Other: Voiding Method Toilet Bedside Commode Bedside Commode # Voids 2 2 - Exam General: non toxic, no distress, appears at stated age Derm: warm, dry Head: atraumatic, normocephalic, symmetric Eyes: EOMI, no lid lag, anicteric sclera Mouth: no lip lesion, mucus membranes moist Cardiovascular: S1S2 reg, no murmur, positive posterior tibial pulse bilateral, Lungs: decreased bs bilateral, no rhonchi, no rales , no accessory muscle use Abdominal: soft, nontender to palpation, no guarding, no appreciable organomegaly Ext: Right arm in sling., no gross muscle atrophy, no edema, no contractures Neuro: CN II-XI grossly intact, no focal neuro deficits, + tremors Psych: Alert, awake, difficulty concentrating, + hallucinations - Labs CBC & Chem 7: 06/26/19 16:53 06/26/19 16:53 Labs: Abnormal Lab Results - Last 24 Hours (Table) 06/26/19 06/26/19 06/26/19 Range/Units 16:53 16:53 21:42 RBC 2.97 L (3.80-5.40) m/uL Hgb 10.9 L (11.4-16.0) gm/dL Hct 33.0 L (34.0-46.0) % MCV 111.1 H (80.0-100.0) fL MCH 36.8 H (25.0-35.0) pg Chloride 108 H (98-107) mmol/L Urine Protein Trace H (Negative) Assessment and Plan Assessment: Patient is a 54-year-old female status post right shoulder hemiarthroplasty due to to avascular necrosis. Post op management per ortho Metabolic encephalopathy due to ETOH withdrawal - resume home klonopin - off tramadol, baclofen, and use ativan as needed for ETOH withdrawals Alcohol abuse with i withdrawal -thiamine and folic acid -WA protocol Atelectasis - IS - frequent turns Acute blood loss anemia - anticipated outcome if surgery - follow CBC - should resolve without specific intervention Bipolar depression -continue current medications Chronic low back and neck pain with neuropathy -hold baclofen and tramadol Fall -No focal neuro deficits -Headache is resolved GERD - PPI Lightheadedness -Likely secondary to pain medications -Check orthostatics negative Chronic: Osteoporosis, optic neuritis, right ocular hypertension, restless leg syndrome D/w with LISETTE Velasco from ortho will hold for 24 more hours due to etoh withdrawal. DVT prophylaxis: Lovenox Discussed with: Patient, nursing Anticipated discharge: 1-[address]: home A total of 35 minutes was spent on the care of this complex patient more than 50% of the time was spent in counseling and care coordination.
[2019-06-27] MEDS: VENLAFAXINE HCL ER 75 MG CAP PO SCH (19:36)
[2019-06-27] MEDS: VENLAFAXINE HCL ER 150 MG CAP PO SCH (19:36)
[2019-06-27] MEDS: QUEtiapine 25 MG TAB PO SCH (19:37)
[2019-06-27] MEDS ORDERED: clonazePAM 1 MG TAB PO SCH (21:00)
[2019-06-27] MEDS: BACLOFEN 10 MG TAB PO SCH (23:40)
[2019-06-28 07:34] LABS: HCT 32.8 % (34.0-46.0); HGB 10.9 gm/dL (11.4-16.0); MCHC 33.1 g/dL (31.0-37.0); MCV 108.7 fL (80.0-100.0); Macrocytosis Moderate; Mean Platelet Volume 7.6; Platelet Count 177 k/uL (150-450); RBC 3.01 m/uL (3.80-5.40); RDW 13.2 % (11.5-15.5); WBC 5.7 k/uL (3.8-10.6)
[2019-06-28 07:45] LABS: African American GFR (CKD) >90 (>60 ml/min/1.73 sqM); Anion Gap 7 mmol/L; Blood Urea Nitrogen 10 mg/dL (7-17); Calcium 9.4 mg/dL (8.4-10.2); Carbon Dioxide 29 mmol/L (22-30); Chloride 105 mmol/L (98-107); Glucose 85 mg/dL (74-99); Potassium 3.8 mmol/L (3.5-5.1); Sodium 141 mmol/L (137-145)
[2019-06-28] MEDS: CITALOPRAM HYDROBROMIDE 10 MG TAB PO SCH (07:48)
[2019-06-28] MEDS: HYDROcodone/APAP 7.5-325MG 1 EACH TAB PO PRN (07:48)
[2019-06-28] MEDS: ENOXAPARIN 40 MG/0.4 ML SYRINGE SQ SCH (07:49)
[2019-06-28] MEDS: BACLOFEN 10 MG TAB PO SCH (07:49)
[2019-06-28] MEDS: PANTOPRAZOLE 40 MG TABLET PO SCH (07:49)
[2019-06-28] MEDS: THIAMINE 100 MG TAB PO SCH (07:49)
[2019-06-28 09:40] VITALS: BP 115/79; PULSE 95; RESP 16; TEMP 98.2
--- NOTE | 2019-06-28 09:57 | P.PN ---
Subjective Progress Note Date: 06/28/19 Principal diagnosis: Status post right shoulder hemiarthroplasty Patient evaluated today at bedside. Later in the afternoon yesterday when internal medicine examined the patient, she did demonstrate some hallucinations. She was kept for an additional night for observation. Today at bedside, no sign of hallucinations. She is resting comfortably. Shoulder pain is well tolerated at this time. Denies any chest pain or shortness of breath. Objective - Vital Signs Vital signs: Vital Signs Temp 98.2 F 06/28/19 07:48 Pulse 95 06/28/19 07:48 Resp 16 06/28/19 07:48 BP 115/79 06/28/19 07:48 Pulse Ox 98 06/28/19 07:48 Intake & Output 06/27/19 06/28/19 06/28/19 18:59 06:59 18:59 Intake Total 450 1080 222 Output Total 250 Balance 200 1080 222 Intake: Oral 450 1080 222 Output: Urine 250 Other: Voiding Method Bedside Commode # Voids 4 - Exam Right upper extremity: Steri-Strips and Prolene suture in good position Soft tissue swelling and ecchymosis present throughout the anterior shoulder and into the anterior upper arm Her sensory exam to light touch throughout the extremities intact, radial pulses 2+ - Labs CBC & Chem 7: 06/28/19 07:01 06/28/19 07:01 Labs: Abnormal Lab Results - Last 24 Hours (Table) 06/28/19 Range/Units 07:01 RBC 3.01 L (3.80-5.40) m/uL Hgb 10.9 L (11.4-16.0) gm/dL Hct 32.8 L (34.0-46.0) % MCV 108.7 H (80.0-100.0) fL MCH 36.0 H (25.0-35.0) pg Assessment and Plan Plan: Assessment: Postoperative day #4 status post right shoulder hemiarthroplasty Plan: Pain control, we'll discharge on [place] 7.5 mg/325 mg. Prescribed enough medication until patient can get in to see her pain management doctor for refill on her [place] 7.5 mg/325 mg GI and DVT prophylaxis, aspirin 325 mg daily Continue use of arm sling and pendular exercises Icing of the right upper extremity often Medical recommendations Discharge planning: An orthopedic standpoint patient is stable for discharge, we'll leave discharge finalization up to internal medicine. Time with Patient: Less than 30
--- NOTE | 2019-06-28 10:48 | P.PN ---
Subjective Progress Note Date: 06/28/19 Principal diagnosis: Right arm pain Patient is a 54-year-old female with a past medical history of chronic back and neck pain, optic neuritis, osteoporosis, depression, restless legs syndrome, neuropathy, and chronic alcohol abuse who presented for elective right shoulder hemiarthroplasty. Patient tolerated procedure well. She did attempt to ambulate after surgery on 06/24 had a fall where she shock her head. She did not follow any neurologic deficits. Worsening confusion on the morning of 06/26. CT hear without acute abnormality. Determined to be in DT's and required 4 doses of ativan on 06/26. Patient seen and examined at bedside. Hallucinations are much improved today. She feels like when she is having are from her eye loss at this point in time. Her nausea has resolved. Her shaking has resolved and she is no longer diaphoretic. She has an intermittent tremor related to nerve damage from prior. She is feeling well and wants to go home. We discussed that she feels alcohol withdrawal is returning she can take an extra one half of her home Klonopin dosing. It worsened significantly she is to return to the emergency department. She feels as her current symptoms are related to her prior neurologic damage and not related to alcohol withdrawal. We discussed staying off alcohol once she is using Belva during her postoperative period. Objective - Vital Signs Vital signs: Vital Signs Temp 98.2 F 06/28/19 07:48 Pulse 95 06/28/19 07:48 Resp 16 06/28/19 07:48 BP 115/79 06/28/19 07:48 Pulse Ox 98 06/28/19 07:48 Intake & Output 06/27/19 06/28/19 06/28/19 18:59 06:59 18:59 Intake Total 450 1080 222 Output Total 250 Balance 200 1080 222 Intake: Oral 450 1080 222 Output: Urine 250 Other: Voiding Method Bedside Commode # Voids 4 - Exam General: non toxic, no distress, appears at stated age Derm: warm, dry Head: atraumatic, normocephalic, symmetric Eyes: EOMI, no lid lag, anicteric sclera Mouth: no lip lesion, mucus membranes moist Cardiovascular: S1S2 reg, no murmur, positive posterior tibial pulse bilateral, Lungs: decreased bs bilateral, no rhonchi, no rales , no accessory muscle use Abdominal: soft, nontender to palpation, no guarding, no appreciable o rganomegaly Ext: Right arm in sling, no gross muscle atrophy, no edema, no contractures Neuro: CN II-XI grossly intact, no focal neuro deficits, + tremors Psych: Alert, awake, appropriate affect, no hallucinations - Labs CBC & Chem 7: 06/28/19 07:01 06/28/19 07:01 Labs: Abnormal Lab Results - Last 24 Hours (Table) 06/28/19 Range/Units 07:01 RBC 3.01 L (3.80-5.40) m/uL Hgb 10.9 L (11.4-16.0) gm/dL Hct 32.8 L (34.0-46.0) % MCV 108.7 H (80.0-100.0) fL MCH 36.0 H (25.0-35.0) pg Assessment and Plan Assessment: Patient is a 54-year-old female status post right shoulder hemiarthroplasty due to to avascular necrosis. Post op management per ortho. Metabolic encephalopathy due to ETOH withdrawal, resolved -klonopin -resume baclofen Alcohol abuse with withdrawal. improved - return to ED if worsening symptoms Atelectasis - IS - frequent turns Acute blood loss anemia - anticipated outcome if surgery - follow CBC - should resolve without specific intervention Bipolar depression -continue current medications Chronic low back and neck pain with neuropathy -hold baclofen and tramadol Fall -No focal neuro deficits -Headache is resolved GERD - PPI Lightheadedness -Likely secondary to pain medications -Check orthostatics negative Chronic: Osteoporosis, optic neuritis, right ocular hypertension, restless leg syndrome Medically stable for discharge. DVT prophylaxis: Lovenox Discussed with: Patient, nursing Anticipated discharge: today Anticipated discharge place: home A total of 35 minutes was spent on the care of this complex patient more than 50% of the time was spent in counseling and care coordination.
--- NOTE | 2019-07-01 13:07 | CDI ---
Documentation Clarification Form Date: 07/01/2019 From: Lacey Castro Phone: If you have question, contact Noa Miller at [phone] M-F 8:30 am to 6pm Admit Date: 06/24/2019 8:30:00 AM Patient Name: Aicha Marion Visit Number: [id number] Discharge Date: 06/28/2019 12:06:00 PM ATTENTION: The Clinical Documentation Specialists (CDI) and [facility] Coding Staff appreciate your assistance in clarifying documentation. Please respond to the clarification below the line at the bottom and electronically sign. The CDI & [facility] Coding staff will review the response and follow-up if needed. Please note: Queries are made part of the Legal Health Record. If you have any questions, please contact the author of this message via ITS. Dr. Anshu Aponte The patient presented with right shoulder pain, worsening over the last 6 months. She has a history of chronic steroid use along with heavy alcohol use. Clinical impression is Right humeral head avascular necrosis likely secondary to steroid use/alcohol abuse. Please clarify if the AVN was secondary to steroid use and alcohol abuse independently or if is secondary to steroid use taken in combination with alcohol abuse. In your professional opinion, can you please clarify: _xxx_AVN due to steroid use in combination with alcohol abuse. Thank you for your time. MTDD
== END 2019-06-28 12:06 | disposition home health service (06) | DRG 908 ==
LOC: 2ORMAIN 08:30 → 4SSUR 16:07
PROVIDERS: ADMIT Orthopaedic Surgery; ATTEND Orthopaedic Surgery
PROC: 0RRJ0J6 Replacement of Right Shoulder Joint with Synthetic Substitute, Humeral Surface, Open Approach (ICD-10-PCS; principal; 2019-06-24 10:35)
DX: T38.0X1A Poisoning by glucocorticoids and synthetic analogues, accidental (unintentional), initial encounter (principal); M87.121 Osteonecrosis due to drugs, right humerus; F31.30 Bipolar disorder, current episode depressed, mild or moderate severity, unspecified; H46.9 Unspecified optic neuritis; F10.231 Alcohol dependence with withdrawal delirium; T38.0X5A Adverse effect of glucocorticoids and synthetic analogues, initial encounter; M81.0 Age-related osteoporosis without current pathological fracture; G25.81 Restless legs syndrome; G62.9 Polyneuropathy, unspecified; M51.26 Other intervertebral disc displacement, lumbar region; N31.8 Other neuromuscular dysfunction of bladder; G31.2 Degeneration of nervous system due to alcohol; F41.9 Anxiety disorder, unspecified; G89.29 Other chronic pain; H40.051 Ocular hypertension, right eye; K21.9 Gastro-esophageal reflux disease without esophagitis; W06.XXXA Fall from bed, initial encounter; Y92.230 Patient room in hospital as the place of occurrence of the external cause; Z79.52 Long term (current) use of systemic steroids; Z79.899 Other long term (current) drug therapy; Z87.891 Personal history of nicotine dependence; Z90.710 Acquired absence of both cervix and uterus
CPT/HCPCS: 64415; 70450; 71045; 80048; 80053; 81003; 83735; 85025; 85027; 88305; 88311; 94760

== ENCOUNTER → 2019-07-30 | Outpatient (CLI) | payer OTHER ==
[2019-07-30 15:29] LABS: Basophils # (A) 0.1 k/uL (0-0.2); Basophils % (A) 1 %; Eosinophils # (A) 0.1 k/uL (0-0.7); Eosinophils % (A) 3 %; HCT 40.8 % (34.0-46.0); Lymphocytes # (A) 1.3 k/uL (1.0-4.8); Lymphocytes % (A) 36 %; MCH 34.1 pg (25.0-35.0); MCHC 31.7 g/dL (31.0-37.0); MCV 107.4 fL (80.0-100.0); Macrocytosis Moderate; Mean Platelet Volume 7.8; Monocytes # (A) 0.2 k/uL (0-1.0); Monocytes % (A) 5 %; Neutrophils # (A) 1.9 k/uL (1.3-7.7); Neutrophils % (A) 53 %; Platelet Count 179 k/uL (150-450); RDW 14.4 % (11.5-15.5); WBC 3.6 k/uL (3.8-10.6)
[2019-07-30 15:34] LABS: ALT 22 U/L (9-52); AST 26 U/L (14-36); African American GFR (CKD) >90 (>60 ml/min/1.73 sqM); Albumin 4.5 g/dL (3.5-5.0); Albumin/Globulin Ratio 1.4; Alkaline Phosphatase 94 U/L (38-126); Anion Gap 14 mmol/L; Blood Urea Nitrogen 12 mg/dL (7-17); Calcium 10.2 mg/dL (8.4-10.2); Carbon Dioxide 21 mmol/L (22-30); Chloride 107 mmol/L (98-107); Globulin 3.3 g/dL; Glucose 87 mg/dL (74-99); Potassium 4.2 mmol/L (3.5-5.1); Sodium 142 mmol/L (137-145); Total Bilirubin 0.6 mg/dL (0.2-1.3); Total Protein 7.8 g/dL (6.3-8.2)
== END | disposition home or self-care (01) ==
LOC: LABWHC1 13:42
PROVIDERS: ATTEND Student in an Organized Health Care Education/Training Program
DX: H46.9 Unspecified optic neuritis (principal)
CPT/HCPCS: 36415; 80053; 85025

== ENCOUNTER → 2019-08-09 | Outpatient (CLI) | payer OTHER ==
--- NOTE | 2019-08-09 08:20 | MR ---
EXAMINATION TYPE: MR orbits wo/w con DATE OF EXAM: 08/09/2019 COMPARISON: None. HISTORY: Blurry vision, Loss of balance, Optic Neuritis TECHNIQUE: Multiplanar, multisequence images of the brain and brainstem is performed without and with IV contras t, utilizing 7.5 mL intravenous Gadavist . FINDINGS: Midline structures are unremarkable. There is a normal craniocervical junction. There are normal vascular flow voids. The orbits have a normal appearance. There is no evidence of proptosis. The globes appear normal. The re is no intraconal or extraconal mass lesion. There is no evidence of enhancement of the optic nerve . The pituitary gland appears normal. There is no impingement upon the optic chiasm. IMPRESSION: NORMAL MRI OF THE ORBITS.
== END | disposition home or self-care (01) ==
LOC: RADMRIMAIN 07:01
PROVIDERS: ATTEND Student in an Organized Health Care Education/Training Program
DX: H46.9 Unspecified optic neuritis (principal); Z88.1 Allergy status to other antibiotic agents
CPT/HCPCS: 70543; A9585

== ENCOUNTER → 2019-10-28 | Outpatient (CLI) | payer OTHER ==
--- NOTE | 2019-10-28 14:44 | MR ---
EXAMINATION TYPE: MR pelvis wo con DATE OF EXAM: 10/28/2019 COMPARISON: Outside bilateral hip x-ray October 16, 2019. Prior CT September 30, 2015 HISTORY: Bilateral hip pain per order. Standard multiplanar, multisequence MRI departmental protocol Multiplanar, multisequence images of the pelvis were acquired. FINDINGS: There is persistent irregular low T1 signal through the femoral heads bilaterally with area s of curvilinear T2 hyperintense signal superiorly in both femoral heads. 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 No bony ossific fragmentation clearly seen. The re is persistent moderate axial joint space loss in both hips with small to tiny right greater than l eft hip joint effusions. Acetabulum shows no significant subchondral cystic change or abnormal osseou s signal. There is some fluid signal level greater trochanters bilaterally more prominent on the left for refer ence coronal image 12. There is 12 mm lesion in the left ischio tuberosity of low T1 and increased T2 signal corresponding to sclerotic focus 2015 CT likely reflecting enchondroma or other benign etiolo gy. No suspicious groin hernia or adenopathy. Muscle bulk bilateral thighs is maintained. Bladder poorly distended. No suspicious bowel dilatation. Uterus surgically absent. IMPRESSION: Bilateral avascular necrosis without bony fragmentation.
== END | disposition home or self-care (01) ==
LOC: RADMRIMAIN 13:28
PROVIDERS: ATTEND Orthopaedic Surgery
DX: M87.9 Osteonecrosis, unspecified (principal)
CPT/HCPCS: 72195

== ENCOUNTER → 2019-11-08 | Outpatient (CLI) | payer OTHER ==
--- NOTE | 2019-11-08 12:48 | MR ---
MRI CERVICAL SPINE: CLINICAL HISTORY: Cervical stenosis. TECHNIQUE: Multiplanar, multisequence imaging of the cervical spine is performed without and with IV contrast, 7 cc of gadolinium was given intravenously. COMPARISON: None. FINDINGS: Sagittal images of the cervical spine show the craniocervical junction to appear within nor mal limits. The cervical and upper thoracic spinal cord is normal in course, caliber, and signal. Sl ight grade 1 retrolisthesis C5 on C6. The vertebral body heights are normal. Moderate disc space na rrowing C5-C6 level. The bone marrow signal intensity is within normal limits. No suspicious enhancem ent. Axial images at C2-C3 level are felt within normal limits. Axial images at C3-C4 level show central disc extrusion extending inferiorly facing anterior thecal s ac with mild right-sided neural foraminal narrowing inferiorly. Axial images at C4-C5 level a broad-based right paracentral disc protrusion effacing ventral thecal s ac and causing mild to moderate right-sided neural foraminal narrowing. Axial images at C5-C6 level show spondylolisthesis with broad based left paracentral spur disc comple x effacing the lateral thecal sac and causing fairly severe left-sided neural foraminal narrowing wit h more mild right-sided neural foraminal narrowing noted. Axial images at C6-C7 level shows broad-based posterior disc protrusion mildly at the base anterior t hecal sac and causing mild bilateral neural foraminal narrowing. Axial images at C7-T1 level are within normal limits. IMPRESSION: Multilevel degenerative changes as detailed above, attention to C5-C6 level where spondyl olisthesis and focal degenerative change causes advanced left-sided neural foraminal narrowing.
== END | disposition home or self-care (01) ==
LOC: RADMRIMAIN 11:44
PROVIDERS: ATTEND Psychiatry & Neurology Clinical Neurophysiology
DX: M99.71 Connective tissue and disc stenosis of intervertebral foramina of cervical region (principal); M48.02 Spinal stenosis, cervical region; M50.00 Cervical disc disorder with myelopathy, unspecified cervical region; M43.12 Spondylolisthesis, cervical region; M47.12 Other spondylosis with myelopathy, cervical region
CPT/HCPCS: 72156; A9585

== ENCOUNTER → 2019-11-25 | Outpatient (CLI) | payer OTHER ==
[2019-11-25 15:20] LABS: Prothrombin Time 10.3 sec (9.0-12.0)
[2019-11-25 15:29] LABS: Potassium 4.3 mmol/L (3.5-5.1)
[2019-11-25 15:31] LABS: Basophils # (A) 0.1 k/uL (0-0.2); Basophils % (A) 1 %; Eosinophils # (A) 0.1 k/uL (0-0.7); Eosinophils % (A) 1 %; HGB 13.4 gm/dL (11.4-16.0); Lymphocytes # (A) 1.8 k/uL (1.0-4.8); Lymphocytes % (A) 35 %; MCH 35.9 pg (25.0-35.0); MCHC 33.4 g/dL (31.0-37.0); MCV 107.4 fL (80.0-100.0); Macrocytosis Moderate; Mean Platelet Volume 8.1; Monocytes # (A) 0.3 k/uL (0-1.0); Monocytes % (A) 6 %; Neutrophils # (A) 2.9 k/uL (1.3-7.7); Neutrophils % (A) 55 %; Platelet Count 201 k/uL (150-450); RBC 3.72 m/uL (3.80-5.40); RDW 13.9 % (11.5-15.5); WBC 5.2 k/uL (3.8-10.6)
--- NOTE | 2019-11-25 15:42 | XR ---
EXAMINATION TYPE: XR chest 2V DATE OF EXAM: 11/25/2019 COMPARISON: 06/26/2019 HISTORY: Shortness of breath TECHNIQUE: Frontal and lateral views of the chest are obtained. FINDINGS: Scattered senescent parenchymal changes noted. Hyperinflation compatible with COPD. No evidence for infiltrate. No evidence for atelectasis. Moderate fixed hiatal hernia. Heart size is stable. Mediastinal structures are stable and grossly unremarkable. No evidence for hilar prominence. Degenerative changes dorsal spine. IMPRESSION: 1. No evidence for acute pulmonary disease.
== END | disposition home or self-care (01) ==
LOC: LABPAT 14:33
PROVIDERS: ATTEND Orthopaedic Surgery
DX: Z01.810 Encounter for preprocedural cardiovascular examination (principal); Z01.818 Encounter for other preprocedural examination; Z01.812 Encounter for preprocedural laboratory examination; M16.12 Unilateral primary osteoarthritis, left hip
CPT/HCPCS: 36415; 71046; 80051; 85025; 85610; 87070; 93005

== ENCOUNTER 2019-12-09 06:15 | Observation (INO) | payer OTHER ==
[2019-11-26 15:43] VITALS: BMI 27.7
--- NOTE | 2019-12-09 04:46 | HP ---
HISTORY AND PHYSICAL The patient is a 54-year-old female on disability, who presents with progressive left hip pain for the past year. She has significant pain in the groin and thigh when she weightbears. She is also having night symptoms. She takes pain medications for this. 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 PAST SURGICAL HISTORY: Significant for hysterectomy along with right shoulder hemiarthroplasty. CURRENT MEDICATIONS: 1. Baclofen. 2. Celexa. 3. Effexor. 4. Klonopin. 5. [place]. 6. Seroquel. She has allergies to BACTRIM. FAMILY HISTORY: Significant for cancer. SOCIAL HISTORY: Significant for previous tobacco use. 16 POINT REVIEW OF SYSTEMS: Otherwise reviewed and is noncontributory. PHYSICAL EXAMINATION: On examination, the patient is approximately 5 foot 3, 150 pounds of endomorphic habitus. HEENT exam is nonfocal. Neck is supple. Passive motion left hip, flexion 80 degrees, external rotation with the hip flexed 70 degrees, internal rotation 10 degrees with pain. She has no gross significant leg length discrepancy. Her distal neurovascular exam appears intact in the left lower extremity. MRI report 10/28/2019 shows avascular necrosis of both hips without significant collapse. IMPRESSION: 1. 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 2. History of connective tissue disorder with history of chronic steroid use. RECOMMENDATIONS: I talked to the patient at length regarding her condition along with treatment options. At this point she is quite symptomatic and opts to proceed with surgery. We will plan to proceed with left total hip arthroplasty. Risks and benefits were discussed at length in layman's terms. We will institute DVT prophylaxis postoperatively. MMODL / IJN: [id number] /
[~2019-12-09 06:15] MED LIST changes: +LIDOCAINE 1% (10MG/ML) FOR IV START INTRADERMA PRN; +METOCLOPRAMIDE 5 MG/ML 2 ML VIAL IVP PRN; -SCOPOLAMINE 1.5MG/72HR PATCH TRANSDERM ONE
[2019-12-09] MEDS: LACTATED RINGERS 1,000 ML IV SCH (06:55)
[2019-12-09] MEDS ORDERED: MIDAZOLAM 2 MG/2 ML VIAL ONE (08:33)
[2019-12-09] MEDS ORDERED: fentaNYL (PF) 50 MCG/ML 2 ML AMP ONE (08:33)
[2019-12-09] MEDS ORDERED: SODIUM CHLORIDE 0.9% 100 ML BAG ONE (08:33)
[2019-12-09] MEDS ORDERED: TRANEXAMIC ACID 1,000 MG/10 ML VIAL ONE (08:33)
[2019-12-09] MEDS ORDERED: PROPOFOL 10 MG/ML 20 ML VIAL IV ONE (08:33)
[2019-12-09] MEDS ORDERED: ceFAZolin 3,000 MG in SODIUM CHLORIDE 0.9% IRRIGATIO 3,000 ML IRRIGATION ONE (09:04)
[2019-12-09] MEDS ORDERED: ACETAMINOPHEN TAB 325 MG TAB PO PRN (10:15)
[2019-12-09] MEDS ORDERED: HYDROmorphone 0.5 MG/0.5 ML SYRINGE IVP PRN (10:15)
[2019-12-09] MEDS ORDERED: traMADol 50 MG TAB PO PRN (10:15)
[2019-12-09] MEDS ORDERED: ONDANSETRON 4 MG/2 ML VIAL IVP PRN (10:15)
[2019-12-09] MEDS ORDERED: NALOXONE 0.4 MG/ML 1 ML VIAL IV PRN (10:15)
[2019-12-09] MEDS ORDERED: HYDROcodone/APAP 7.5-325MG 1 EACH TAB PO PRN (10:15)
[2019-12-09] MEDS ORDERED: LACTATED RINGERS 1,000 ML IV ONE (10:30)
--- NOTE | 2019-12-09 10:43 | P.OP ---
Date of Procedure: 12/09/19 Preoperative Diagnosis: Avascular necrosis left hip/stage II3 Postoperative Diagnosis: Same Procedure(s) Performed: Left total hip arthroplastyanterior approachpress-fit Implants: Depuy Corail size 10 standard collared femoral stem, 50 mm [place] acetabular shell, neutral polyethylene liner, 32 mm +1 ceramic femoral head Anesthesia: spinal Surgeon: Anshu Aponte Glass Bead Maker #1: Peng Thompson Estimated Blood Loss (ml): 200 Pathology: other (Femoral head) Condition: stable Disposition: PACU Indications for Procedure: The patient's a 54-year-old female who presents with progressive left hip pain secondary to avascular necrosis. A discussion of the risks and benefits of operative intervention was made with patient. Operative options were discussed and she opted to proceed with total hip are the plasty. Specific risks of this procedure to include infection, fracture, neurovascular injury, development of blood clots, possible leg length discrepancy, possible instability and need for subsequent procedures was discussed. Informed consent was obtained. Operative Findings: As below Description of Procedure: The patient was brought to the operating room, and after induction of spinal anesthesia was placed supine on the [place] table. Positioning was checked with fluoroscopy. The left hip was then prepped and draped in a normal fashion. A 12 cm incision was then made starting 2 fingerbreadths distal and 3 finger breaths posterior to the ASIS in line with the proximal femur. The skin was incised sharply. Subcutaneous tissues were divided sharply. Electrocautery was used for hemostasis. The fascia was split in line with skin incision. The interval between the sartorius and tensor fascia jess was then bluntly developed. The posterior fascia was opened with electrocautery. The lateral circumflex vessels were identified and cauterized prior to sectioning. A retractor was placed along the superior femoral neck as well as the anterior ac etabular rim. A wide capsulotomy was performed. The neck cut was then made at a 45 angle to the shaft approximately 1 1/2 cm above the level of the lesser trochanter. The head was extracted. Attention was then paid towards preparing the acetabular. Anterior and posterior retractors were placed. The remaining capsular labral tissue sharply debrided clearly defining the acetabular margins. I began reaming with a 43 mm reamer taking care to initially medialize then reaming at 45 of abduction and 20 of anteversion. Sequential reaming is performed up to 49 mm. A trial 50 mm acetabular shell was inserted in the same orientation and was fully seated. There was good rim fit and stability. Positioning was checked with fluoroscopy. The final [place] mm acetabular shell was inserted again at 45 of abduction and 20 of anteversion. This was fully seated. There was good rim fit and stability. Again fluoroscopy was used to check the adequacy of placement. A neutral polyethylene liner was gently impacted. Care was taken to avoid any soft tissue interposition. Pulsatile lavage was utilized. Attention was then paid towards preparing the proximal femur. The central region was cleared of soft tissue. A canal finder was used to find the femoral canal. Sequential broaching was performed up to size 10 taking care to lateralize proximally. A calcar mill was used to fashion the medial calcar. There was good rotational stability. A standard neck along with a 32 mm +1 head was placed. The hip was gently reduced. Fluoroscopy was used to check the adequacy of positioning along with leg lengths. I felt both were good. The hip was gently dislocated. The trial components were removed. The final size 10 collared standard press-fit femoral stem was inserted parallel to the posterior cortex. This was fully seated and there was good rotational stability. A 32 mm +1 ceramic femoral head was placed. This was gently impacted. The hip was then gently reduced. Final fluoroscopic view showed adequate placement implant along with restorationism of leg length. Stability was checked with 80 of external rotation and 60 of extension of the right hip. The wound was irrigated with sterile lavage. The fascia was closed with running 0 Vicryl suture. There was minimal drainage therefore a deep drain was not placed. The second dose of IV TXA was given. The subcutaneous tissues were reapproximated interrupted 2-0 Vicryl sutures. The skin was reapproximated with 3-0 subcuticular strata fix suture. Skin tape and adhesive was applied. A sterile dressing was applied. The patient was then awoken from sedation and transferred to recovery room in good condition. Blood loss was estimated at 200 mL. No complications were incurred. Sponge and needle counts were correct at the end of the case. Rod KNOX assisted during the major components is case to include exposure, bone resection, implantation, and closure.
--- NOTE | 2019-12-09 11:05 | FL ---
Fluoroscopy History: LEFT ANTERIOR HIP ARTHROPLASTY 35 sec fluoro. 1 image scanned.
[2019-12-09] MEDS: HYDROmorphone 1 MG/ML 1 ML SYRINGE IVP PRN ×2 (12:50→17:02)
--- NOTE | 2019-12-09 18:41 | P.CONS ---
History of Present Illness - Reason for Consult Consult date: 12/09/19 medical management Requesting physician: Anshu Aponte - Chief Complaint left hip avascular necrosis - History of Present Illness 54-year-old female with history of depression. And arthritis of multiple joints Patient comes in for elective left total hip arthroplasty due to a vascular necrosis of the left hip patient tolerated procedure well without any observed immediate postoperative, patients. Denies any current chest pain or trouble breathing she reports that pain is well tolerated. She tolerated by mouth intake. He has urinated. Denies any nausea vomiting. She reports that she was chronically on steroids for which resulted in a vascular necrosis of her left hip. For which she is here today for surgery medicine was consulted to assist in medical management postoperatively of this patient Patient also has tendinitis of her left hand for which she is wearing a splint Review of Systems Pertinent positives as noted in HPI. 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, herniated discs in neck & back with neuropathy, osteoporosis, restless leg syndrome, osteoporosis, bilateral ocular hypertension, History of Any Multi-Drug Resistant Organisms: None Reported Past Surgical History: Heart Catheterization, Hysterectomy, Orthopedic Surgery Additional Past Surgical History / Comment(s): EGD w/dilatation, colonoscopy, total rt shoulder Past Anesthesia/Blood Transfusion Reactions: No Reported Reaction Past Psychological History: Anxiety, Depression Smoking Status: Former smoker Past Alcohol Use History: Daily Additional Past Alcohol Use History / Comment(s): drinks one drink daily, and up to 3 drinks a day on weekends Past Drug Use History: Marijuana Additional Drug Use History / Comment(s): rare use, instructed to withold 24 hrs before procedure - Past Family History Brother(s) Family Medical History: Cancer Additional Family Medical History / Comment(s): brain, stomach Sister(s) Family Medical History: Cancer Additional Family Medical History / Comment(s): brain Medications and Allergies Home Medications Medication Instructions Recorded Confirmed Type Baclofen [Lioresal] 20 mg PO TID 06/13/19 12/09/19 History Citalopram Hydrobromide [CeleXA] 10 mg PO DAILY 06/13/19 12/09/19 History QUEtiapine [SEROquel] 25 mg PO HS 06/13/19 12/09/19 History Venlafaxine HCl [Effexor XR] 150 mg PO QAM 06/13/19 12/09/19 History clonazePAM [KlonoPIN] 3 mg PO HS 06/13/19 12/09/19 History Venlafaxine HCl [Effexor XR] 75 mg PO QAM 06/24/19 12/09/19 History HYDROcodone/APAP 7.5-325MG [[place] 1 each PO Q6HR PRN 11/26/19 11/26/19 History 7.5] Allergies Allergy/AdvReac Type Severity Reaction Status Date / Time sulfamethoxazole Allergy Rash/Hives Verified 12/09/19 06:34 [From Bactrim] trimethoprim [From Bactrim] Allergy Rash/Hives Verified 12/09/19 06:34 Physical Exam Vitals: Vital Signs Temp Pulse Pulse Resp BP Pulse Ox 12/09/19 15:00 97.6 F 80 17 102/70 93 L 12/09/19 14:20 77 102/70 89 L 12/09/19 14:05 72 104/73 89 L 12/09/19 13:50 85 101/69 88 L 12/09/19 13:35 74 113/72 92 L 12/09/19 13:20 79 102/67 90 L 12/09/19 12:35 97.6 F 72 16 105/70 95 12/09/19 12:03 65 18 116/78 100 12/09/19 11:33 64 18 118/74 100 12/09/19 11:15 65 18 117/69 100 12/09/19 11:04 63 18 114/72 100 12/09/19 10:45 61 18 104/60 100 12/09/19 10:33 74 16 100/53 97 12/09/19 06:42 98.3 F 77 16 109/67 96 Intake and Output 12/09/19 12/09/19 12/09/19 06:59 14:59 22:59 Intake Total 200 1151 Output Total 200 Balance 200 951 Intake: IV 200 1151 Output: Estimated Blood Loss 200 Other: # Voids 1 Weight 71.5 kg 71.5 kg Constitutional: No acute distress, conversant, pleasant Eyes: Anicteric sclerae, moist conjunctiva, Pupils equal round reactive to light ENMT: NC/AT Oropharynx clear, no erythema, exudates Neck: Supple, FROM, no masses, or JVD No carotid bruits No thyromegaly Lungs: Clear to auscultation Clear to percussion Normal respiratory effort, no accessory muscle use Cardiovascular: Heart regular in rate and rhythm, No murmurs, gallops, or rubs No peripheral edema Abdominal: Soft Nontender, no guarding, rebound or rigidity Abdomen moving with respiration Normoactive bowel sounds No hepatomegaly, No splenomegaly No palpable mass No abdominal wall hernia noted Skin: Normal temperature, tone, texture, turgor No induration No subcutaneous nodules No rash, lesions No ulcers Extremities: Splint over her left hand due to tendinitis Surgical dressing over left hip looks dry clean and intact No digital cyanosis No clubbing Pedal pulses intact and symmetrical Radial pulses intact and symmetrical No calf tenderness Psychiatric: Alert and oriented to person, place and time Appropriate affect fair judgement Neuro Muscles Strength 5/5 inboth upper extremities and right lower extremity, left lower extremity limited exam due to recent surgery. Sensation to light touch grossly present throughout Cranial nerves II-XII grossly intact No focal sensory deficits Lymphatics: no palpable cervical or supraclavicular , or inguinal lymph nodes Assessment and Plan Assessment: 54-year-old female with multiple joint [place] arthritis, tendinitis of the left hand, a vascular necrosis of the left hip status post left total hip arthroplasty comes in for scheduled left hip total replacement tolerated procedure well minutes in consultative to assist in medical management postoperatively Plan: Depression currently stable Continue home medications Medication reconciliation performed A vascular necrosis of the left hip status post Left total hip arthroplasty postoperative day 0 Management per orthopedics DVT prophylaxis per orthopedic Tendinitis of the left hand Continue with hand splint Pain control follow-up on renal function and CBC in the morning monitor vital signs Thank you for allowing us to participate in the care of this patient. Do not hesitate to contact us with questions. Someone can be reached from the [facility] hospitalist group at all hours of the day at [phone].
[2019-12-09] MEDS: clonazePAM 1 MG TAB PO SCH (21:13)
[2019-12-09] MEDS: QUEtiapine 25 MG TAB PO SCH (21:14)
[2019-12-09] MEDS: BACLOFEN 10 MG TAB PO SCH (21:14)
[2019-12-09] MEDS: SENNOSIDES-DOCUSATE SODIUM 1 EACH TAB PO SCH (21:14)
[2019-12-09] MEDS: HYDROcodone/APAP 7.5-325MG 1 EACH TAB PO PRN (23:55)
[2019-12-10] MEDS: LACTATED RINGERS 1,000 ML IV SCH (04:14)
[2019-12-10] MEDS: FAMOTIDINE 20 MG TAB PO SCH (07:50)
[2019-12-10] MEDS: CITALOPRAM HYDROBROMIDE 10 MG TAB PO SCH (07:50)
[2019-12-10] MEDS: VENLAFAXINE HCL ER 75 MG CAP PO SCH (07:50)
[2019-12-10] MEDS: RIVAROXABAN 10 MG TAB PO SCH (07:50)
[2019-12-10] MEDS: BACLOFEN 10 MG TAB PO SCH ×3 (07:51→20:09)
[2019-12-10] MEDS: HYDROcodone/APAP 7.5-325MG 1 EACH TAB PO PRN ×2 (07:51→16:56)
[2019-12-10 08:14] LABS: Basophils % (A) 0 %; Eosinophils # (A) 0.1 k/uL (0-0.7); Eosinophils % (A) 1 %; HCT 35.7 % (34.0-46.0); HGB 11.3 gm/dL (11.4-16.0); Hypochromasia Slight; Lymphocytes % (A) 12 %; MCH 35.1 pg (25.0-35.0); MCHC 31.6 g/dL (31.0-37.0); MCV 111.1 fL (80.0-100.0); Macrocytosis Marked; Monocytes # (A) 0.3 k/uL (0-1.0); Monocytes % (A) 4 %; Neutrophils # (A) 7.1 k/uL (1.3-7.7); Neutrophils % (A) 82 %; Platelet Count 173 k/uL (150-450); RBC 3.21 m/uL (3.80-5.40); RDW 14.2 % (11.5-15.5); WBC 8.6 k/uL (3.8-10.6)
[2019-12-10 08:25] LABS: African American GFR (CKD) >90 (>60 ml/min/1.73 sqM); Anion Gap 10 mmol/L; Blood Urea Nitrogen 13 mg/dL (7-17); Calcium 9.1 mg/dL (8.4-10.2); Carbon Dioxide 25 mmol/L (22-30); Chloride 107 mmol/L (98-107); Glucose 198 mg/dL (74-99); Non-African American GFR(CKD) 89 (>60 ml/min/1.73 sqM); Potassium 4.4 mmol/L (3.5-5.1); Sodium 142 mmol/L (137-145)
[2019-12-10] MEDS ORDERED: VENLAFAXINE HCL ER 150 MG CAP PO SCH (09:00)
[2019-12-10 09:11] LABS: Anisocytosis (M) Present; Poikilocytosis (M) Present; Stomatocytes Present
--- NOTE | 2019-12-10 11:20 | P.PN ---
Subjective Progress Note Date: 12/10/19 Principal diagnosis: status post direct anterior left total hip arthroplasty Patient is seen at bedside, she is resting in her hospital chair. She's done well with physical therapy. She denies any chest pain, shortness of breath, fever or chills. Patient notified me that they're working on getting her a new bed for home, this was to be delivered today. She's concerned going home before that Objective - Vital Signs Vital signs: Vital Signs Temp 98.1 F 12/10/19 07:30 Pulse 90 12/10/19 07:30 Resp 16 12/10/19 07:30 BP 99/65 12/09/19 19:22 Pulse Ox 95 12/10/19 07:30 Intake & Output 12/09/19 12/10/19 12/10/19 18:59 06:59 18:59 Intake Total 1151 Output Total 200 Balance 951 Weight 71.5 kg Intake: IV 1151 Output: Estimated Blood Loss 200 Other: Voiding Method Toilet Toilet # Voids 1 3 1 - Exam Left lower extremity: Incision is clean, dry, and intact. The exofin fusion tape is in good condition. There is minimal soft tissue swelling and ecchymosis surrounding the medial and lateral aspects of the incision. Calf is soft, no tenderness with palpation. Plantar flexion, dorsiflexion, EHL, FHL are intact. Sensory exam to light touch throughout the extremity is intact, dorsal pedis pulses 2+. - Labs CBC & Chem 7: 12/10/19 07:50 12/10/19 07:50 Labs: Abnormal Lab Results - Last 24 Hours (Table) 12/10/19 12/10/19 Range/Units 07:50 07:50 RBC 3.21 L (3.80-5.40) m/uL Hgb 11.3 L (11.4-16.0) gm/dL MCV 111.1 H (80.0-100.0) fL MCH 35.1 H (25.0-35.0) pg Macrocytosis Marked A Glucose 198 H (74-99) mg/dL Assessment and Plan Plan: Assessment: Postop day #1 status post direct anterior left total hip arthroplasty Plan: Pain control, continue with current medication GI and DVT prophylaxis, continue current medication Wound care instructions discussed Icing and elevating discussed Continue with physical therapy Encourage incentive spirometer Medical recommendations Plan for discharge home tomorrow Time with Patient: Less than 30
--- NOTE | 2019-12-10 11:26 | P.PN ---
Subjective Progress Note Date: 12/10/19 Principal diagnosis: Follow-up for postoperative medical care Patient seen and examined patient doing well , participated with PT today , did well, felt tired denies chest pain or trouble breathing, tolerating by mouth intake denies nausea or vomiting Labs reviewed unremarkable Blood pressure low-normal patient asymptomatic Objective - Vital Signs Vital signs: Vital Signs Temp 98.1 F 12/10/19 07:30 Pulse 90 12/10/19 07:30 Resp 16 12/10/19 07:30 BP 99/65 12/09/19 19:22 Pulse Ox 95 12/10/19 07:30 Intake & Output 12/09/19 12/10/19 12/10/19 18:59 06:59 18:59 Intake Total 1151 Output Total 200 Balance 951 Weight 71.5 kg Intake: IV 1151 Output: Estimated Blood Loss 200 Other: Voiding Method Toilet Toilet # Voids 1 3 1 - Exam Constitutional: vital signs stable, Not in acute distress, pleasant, conversant Lungs: Clear to auscultation bilaterally, clear to percussion, normal respiratory effort Cardiovascular: Regular rate and rhythm, no murmurs, no gallops, no rubs, no peripheral edema Skin: Surgical dressing looks clean and intact and dry Extremities: No digital cyanosis peripheral pulses palpable and equal , no calf muscle tenderness Psych: Alert, oriented to place, person and time, appropriate affect, intact judgment - Labs CBC & Chem 7: 12/10/19 07:50 12/10/19 07:50 Labs: Abnormal Lab Results - Last 24 Hours (Table) 12/10/19 12/10/19 Range/Units 07:50 07:50 RBC 3.21 L (3.80-5.40) m/uL Hgb 11.3 L (11.4-16.0) gm/dL MCV 111.1 H (80.0-100.0) fL MCH 35.1 H (25.0-35.0) pg Macrocytosis Marked A Glucose 198 H (74-99) mg/dL Assessment and Plan Assessment: 54-year-old female with multiple joint [place] arthritis, tendinitis of the left hand, a vascular necrosis of the left hip status post left total hip arthropl asty comes in for scheduled left hip total replacement tolerated procedure well minutes in consultative to assist in medical management postoperatively 12/10 patient doing well , participated with PT today , did well, felt tired denies chest pain or trouble breathing, tolerating by mouth intake denies nausea or vomiting Labs reviewed unremarkable Blood pressure low-normal patient asymptomatic Plan: acute post operative anemia , mild , asymptomatic, expected dressing looks clean dry and intact Depression currently stable Continue home medications Medication reconciliation performed A vascular necrosis of the left hip status post Left total hip arthroplasty post operative day 0 Management per orthopedics DVT prophylaxis per orthopedic Tendinitis of the left hand Continue with hand splint Pain control Labs reviewed, unremarkable. Slight drop in hemoglobin expected postsurgery Surgical dressing dry clean and intact Vital signs overall stable. Patient is borderline normal blood pressure asymptomatic Stable from internal medicine standpoint for discharge
[2019-12-10] MEDS: SENNOSIDES-DOCUSATE SODIUM 1 EACH TAB PO SCH (20:10)
[2019-12-10] MEDS: QUEtiapine 25 MG TAB PO SCH (20:10)
[2019-12-10] MEDS: clonazePAM 1 MG TAB PO SCH (20:10)
[2019-12-11] MEDS: HYDROcodone/APAP 7.5-325MG 1 EACH TAB PO PRN ×2 (05:10→15:31)
[2019-12-11] MEDS: LACTATED RINGERS 1,000 ML IV SCH (06:47)
[2019-12-11] MEDS: BACLOFEN 10 MG TAB PO SCH ×2 (09:22→15:31)
[2019-12-11] MEDS: CITALOPRAM HYDROBROMIDE 10 MG TAB PO SCH (09:22)
[2019-12-11] MEDS: FAMOTIDINE 20 MG TAB PO SCH (09:23)
[2019-12-11] MEDS: RIVAROXABAN 10 MG TAB PO SCH (09:23)
[2019-12-11] MEDS: VENLAFAXINE HCL ER 75 MG CAP PO SCH (09:24)
--- NOTE | 2019-12-11 11:19 | P.PN ---
Subjective Progress Note Date: 12/11/19 Principal diagnosis: status post direct anterior left total hip arthroplasty Patient is seen at bedside, she is resting in her hospital chair. She's done well with physical therapy. She denies any chest pain, shortness of breath, fever or chills. Objective - Vital Signs Vital signs: Vital Signs Temp 97.8 F 12/11/19 07:32 Pulse 76 12/11/19 09:52 Resp 17 12/11/19 07:32 BP 120/75 12/11/19 07:32 Pulse Ox 84 L 12/11/19 09:06 Intake & Output 12/10/19 12/11/19 12/11/19 18:59 06:59 18:59 Other: Voiding Method Toilet Toilet # Voids 3 2 - Exam Left lower extremity: Incision is clean, dry, and intact. The exofin fusion tape is in good condition. There is minimal soft tissue swelling and ecchymosis surrounding the medial and lateral aspects of the incision. Calf is soft, no tenderness with palpation. Plantar flexion, dorsiflexion, EHL, FHL are intact. Sensory exam to light touch throughout the extremity is intact, dorsal pedis pulses 2+. - Labs CBC & Chem 7: 12/10/19 07:50 12/10/19 07:50 Assessment and Plan Plan: Assessment: Postop day #2 status post direct anterior left total hip arthroplasty Plan: Pain control, patient does take [place] 7.5 mg/325 mg at home. She has a pain management doctor if she sees normally prescribes monthly. Our plan is to continue on the 7.5 mg dose, we will increase it to 1-2 pills every 6 hours as needed. GI and DVT prophylaxis, Eliquis 2.5mg bid at discharge Wound care instructions discussed Icing and elevating discussed Continue with physical therapy Encourage incentive spirometer Medical recommendations Plan for discharge home today Time with Patient: Less than 30
--- NOTE | 2019-12-11 11:40 | P.DS ---
Providers Date of admission: 12/09/2019 Expected date of discharge: 12/11/19 Attending physician: Anshu Aponte Consults: 12/09/19 10:15 Consult Physician Routine Consulting Provider: Krista Chen Consult Reason/Comments: medical management Do you want consulting provider notified?: Yes Primary care physician: [facility] Course: Date of admission: 12/09/2019 Date of discharge: 12/11/2019 Admission diagnosis: Status post direct anterior left total hip arthroplasty Discharge diagnosis: Same Attending physician: Dr. 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 At this point patient has failed conservative treatment measures and has opted to proceed with a elective direct anterior left total hip arthroplasty. Hospital course: Details of patient's surgery can be found in operative report. Patient tolerated the procedure well and was subsequently transported to orthopedic floor. Patient's orthopeidc and medical care was provided daily. Patient had daily laboratory tests performed for evaluation of overall blood counts. Patient had daily physical therapy to include strengthening range of motion as well as education with walker ambulation. Patient was treated with Xarelto for their postoperative DVT prophylaxis during their inpatient stay. Patient was noted to have a relatively uneventful postoperative course. Patient reported satisfactory pain control with oral pain medications by postoperative day 0. Patient showed satisfactory progress with physical therapy. Patient moved steadily through the program and had no difficulty meeting the goals by postoperative day 2. Given patient's otherwise satisfactory course and having met physical therapy goals, plan is to discharge patient home on postoperative day 2. Discharge condition/disposition: Patient will be discharged home in stable condition. Discharge medications: Instructions are given on resumption of patient's normal daily medications per primary care recommendation, in addition patient will be prescribed Eliquis 2.5mg. Discharge instructions: 1. Wound care and infection precautions, keep incision dry and covered while showering, no lotions, creams, moisturizers. No soaking, tubs, pools, hottubs. Do not scrub over the incision. 2. Weight-bear as tolerated with walker / cane until follow-up. 3. Ice and elevate when necessary. Do not exceed 20 minutes per hour with ice pack. 4. Utilize compression sleeve until seen at first follow up appointment. 5. Visiting nursing care. 6. Home physical therapy. 7. Pain meds and anticoagulants per prescription. 8. Pain medication has potential to cause constipation. Increase oral fluid and fiber intake. Contact primary care provider if you have not had a bowel movement within 48 hours after discharge 9. No anti-inflammatory medication until discussed at first post operative visit, this including Motrin, Aleve, Mobic, Diclofenac. 10. Follow up in office at 2 weeks postop with Rod Thompson PA-C 11. Follow up with your primary care doctor 7-10 days after discharge. 12. Contact [facility] with any questions, . Procedures: Direct anterior left total hip arthroplasty Patient Condition at Discharge: Good Plan - Discharge Summary Discharge Rx Participant: Yes New Discharge Prescriptions: New Apixaban [Eliquis] 2.5 mg PO BID #60 tab HYDROcodone/APAP 7.5-325MG [[place] 7.5] 1 each PO Q6HR PRN #28 tab PRN Reason: Pain No Action clonazePAM [KlonoPIN] 3 mg PO HS Citalopram Hydrobromide [CeleXA] 10 mg PO DAILY QUEtiapine [SEROquel] 25 mg PO HS Baclofen [Lioresal] 20 mg PO TID Venlafaxine HCl [Effexor XR] 150 mg PO QAM Venlafaxine HCl [Effexor XR] 75 mg PO QAM HYDROcodone/APAP 7.5-325MG [[place] 7.5] 1 each PO Q6HR PRN PRN Reason: Pain Discharge Medication List Baclofen [Lioresal] 20 mg PO TID 06/13/19 [History] Citalopram Hydrobromide [CeleXA] 10 mg PO DAILY 06/13/19 [History] QUEtiapine [SEROquel] 25 mg PO HS 06/13/19 [History] Venlafaxine HCl [Effexor XR] 150 mg PO QAM 06/13/19 [History] clonazePAM [KlonoPIN] 3 mg PO HS 06/13/19 [History] Venlafaxine HCl [Effexor XR] 75 mg PO QAM 06/24/19 [History] HYDROcodone/APAP 7.5-325MG [[place] 7.5] 1 each PO Q6HR PRN 11/26/19 [History] Apixaban [Eliquis] 2.5 mg PO BID #60 tab 12/11/19 [Rx] HYDROcodone/APAP 7.5-325MG [[place] 7.5] 1 each PO Q6HR PRN #28 tab 12/11/19 [Rx] Follow up Appointment(s)/Referral(s): Debra Hetah MD [Primary Care Provider] - 12/12/19 2:15 pm [facility], [NON-STAFF] - Peng Thompson PAC [PHYSICIAN PROJECT INTERN] - 12/24/19 3:10 pm Patient Instructions/Handouts: Anterior Hip Replacement (DC) Activity/Diet/Wound Care/Special Instructions: Walker/Hospital Bed [facility] - [phone] Orthopedic Discharge Instructions: 1. Wound care and infection precautions, keep incision dry and covered while showering, no lotions, creams, moisturizers. No soaking, pools, hot tubs. Do not scrub over incision. 2. Weight-bear as tolerated with walker / cane until follow-up. 3. Ice and elevate when necessary. Do not exceed 20 minutes per hour with ice pack. 4. Utilize compression sleeve until seen at first follow up appointment. 5. Pain meds and anticoagulants per prescription. 6. Pain medication has potential to cause constipation. Increase oral fluid and fiber intake. Contact primary care provider if you have not had a bowel movement within 48 hours after discharge. 7. No anti-inflammatory medication until discussed at first post operative visit, this including Motrin, Aleve, Mobic, Diclofenac. 8. Follow up in office at 2 weeks postop with Rod Thompson PA-C 9. Follow up with your primary care doctor 7-10 days after discharge. 10. Contact [facility] with any questions, . Discharge Disposition: HOME WITH HOME HEALTH SERVICES
--- NOTE | 2019-12-11 15:29 | P.PN ---
Subjective Progress Note Date: 12/11/19 Principal diagnosis: Follow-up for postoperative medical care Patient seen and examined Patient is not happy that she is leaving the hospital today however I encouraged her and I told her this is very helpful for her to go home and starts moving around. Patient is worried that pain will get worse at home. But she is agreeable that going home and moving around will help her heal faster. Denies any chest pain or trouble breathing. She is tolerating diet denies any nausea vomiting Objective - Vital Signs Vital signs: Vital Signs Temp 97.8 F 12/11/19 07:32 Pulse 76 12/11/19 09:52 Resp 17 12/11/19 07:32 BP 120/75 12/11/19 07:32 Pulse Ox 84 L 12/11/19 09:06 Intake & Output 12/10/19 12/11/19 12/11/19 18:59 06:59 18:59 Intake Total 800 Balance 800 Intake: Oral 800 Other: Voiding Method Toilet Toilet # Voids 3 2 - Exam Constitutional: vital signs stable, Not in acute distress, pleasant, conversant Lungs: Clear to auscultation bilaterally, clear to percussion, normal respiratory effort Cardiovascular: Regular rate and rhythm, no murmurs, no gallops, no rubs, no peripheral edema Skin: Surgical dressing looks clean and intact and dry Extremities: No digital cyanosis peripheral pulses palpable and equal , no calf muscle tenderness - Labs CBC & Chem 7: 12/10/19 07:50 12/10/19 07:50 Assessment and Plan Assessment: 54-year-old female with multiple joint [place] arthritis, tendinitis of the left hand, a vascular necrosis of the left hip status post left total hip arthroplasty comes in for scheduled left hip total replacement tolerated procedure well minutes in consultative to assist in medical management post operatively 12/10 patient doing well , participated with PT today , did well, felt tired denies chest pain or trouble breathing, tolerating by mouth intake denies nausea or vomiting Labs reviewed unremarkable Blood pressure low-normal patient asymptomatic 12/11 Patient reports some discomfort when she gets up and moving symptoms she can't make it intensive the bathroom. Suggested that she makes regular visits to the bathroom every 2 hours not to wait for full bladder. She will be provided with adult briefs Otherwise vital signs are stable blood pressure within normal range Patient stable from medicine standpoint for discharge Plan: acute post operative anemia , mild , asymptomatic, expected dressing looks clean dry and intact Depression currently stable Continue home medications Medication reconciliation performed A vascular necrosis of the left hip status post Left total hip arthroplasty postoperative day 1 Management per orthopedics DVT prophylaxis per orthopedic Tendinitis of the left hand Continue with hand splint Pain control Surgical dressing dry clean and intact Vital signs stable, blood pressure improved compared to yesterday currently wi thin normal limits. Stable from internal medicine standpoint for discharge
[2019-12-11 16:13] VITALS: BP 102/69; PULSE 82; RESP 16; TEMP 98.2
== END 2019-12-11 16:57 | disposition home health service (06) ==
LOC: OR 06:15 → 4SSUR 10:11 → OR 23:41
PROVIDERS: ADMIT Orthopaedic Surgery; ATTEND Orthopaedic Surgery
DX: M87.9 Osteonecrosis, unspecified (principal); M19.90 Unspecified osteoarthritis, unspecified site; F32.9 Major depressive disorder, single episode, unspecified; H46.9 Unspecified optic neuritis; M51.26 Other intervertebral disc displacement, lumbar region; M50.20 Other cervical disc displacement, unspecified cervical region; G62.9 Polyneuropathy, unspecified; K21.9 Gastro-esophageal reflux disease without esophagitis; M77.9 Enthesopathy, unspecified; M81.0 Age-related osteoporosis without current pathological fracture; G25.81 Restless legs syndrome; H40.053 Ocular hypertension, bilateral; F41.9 Anxiety disorder, unspecified; Z90.710 Acquired absence of both cervix and uterus; Z80.9 Family history of malignant neoplasm, unspecified; Z87.39 Personal history of other diseases of the musculoskeletal system and connective tissue; Z87.891 Personal history of nicotine dependence; Z79.891 Long term (current) use of opiate analgesic; Z79.899 Other long term (current) drug therapy; Z88.2 Allergy status to sulfonamides
CPT/HCPCS: 27130; 94760; 97116; 97161; 97166; 86900; 86901; 80048; 85025; 86850; 88300; 73501; 36415; G0378 ×2; C1776; J2250; J1100; J0690 ×2; J2405; J3010; J1170 ×2; J2704

== ENCOUNTER → 2020-02-04 | Day surgery (SDC) | payer OTHER ==
[2020-02-02 15:30] VITALS: BMI 27.0
[~2020-02-04] MED LIST changes: -ACETAMINOPHEN TAB 500 MG TAB PO ONE; -DEXAMETHASONE SOD PHOSPHATE 10 MG/ML 1 ML VIAL IV ONE; -HYDROmorphone 0.5 MG/0.5 ML SYRINGE IVP PRN; +LACTATED RINGERS 1,000 ML IV SCH; +LIDOCAINE 1% INJ 10MG/ML (20 ML MDV) ONE; -MELOXICAM 7.5 MG TAB PO ONE; -METOCLOPRAMIDE 5 MG/ML 2 ML VIAL IVP PRN; -MIDAZOLAM 2 MG/2 ML VIAL IV PRN; -ONDANSETRON 4 MG/2 ML VIAL IVP ONE; +PROPOFOL 10 MG/ML 20 ML VIAL IV ONE; -TRANEXAMIC ACID 1,000 MG in SODIUM CHLORIDE 0.9% 100 ML IVPB ONE
[2020-02-04 07:57] VITALS: TEMP 97
--- NOTE | 2020-02-04 08:49 | P.PCN ---
Date of Procedure: 02/04/20 Procedure(s) Performed: BRIEF HISTORY: Patient is a 54-year-old, pleasant, white female, scheduled for an upper endoscopy as a part of evaluation of the intermittent dysphagia to solids for the last few weeks duration. She went to the emergency room with acute food bolus impaction about 2 weeks ago that has spontaneously resolved. Last EGD with dilation was in April 2018... PROCEDURE PERFORMED: Esophagogastroduodenoscopy with biopsy and dilation. PREOPERATIVE DIAGNOSIS: Intermittent dysphagia to solids and history of esophageal stricture. IV sedation per anesthesia. PROCEDURE: After informed consent was obtained, the patient was brought into the endoscopy unit. IV sedation was administered by Anesthesia under continuous monitoring. Initially the Olympus GIF-140 video endoscope was inserted into the mouth. Esophagus intubated without any difficulty. It was gradually advanced into the stomach and duodenum and carefully examined. The bulb and the second part of the duodenum appeared normal. The scope at this time was withdrawn to the stomach, adequately insufflated with air, and upon careful examination, mucosa of the antrum, body, cardia and the fundus appeared normal. On retroflexion there was a moderate size hiatal hernia noted. The scope was then withdrawn into the esophagus. The GE junction was located at 36 cm from the incisors. There was a distal esophageal stricture identified and this time I proceeded with a balloon dilation using 12-15 mm TTS balloon in a sequential fashion. Following the dilation there was some mucosal oozing at the same site of dilation. The rest of the esophagus appeared normal. There were no erosions or ulcerations seen and the patient tolerated the procedure well. IMPRESSION: 1. Distal esophageal stricture status post balloon dilation using 12-15 mm TTS balloon as described above. 2. Moderate size hiatal hernia. RECOMMENDATIONS: The findings of this examination were discussed with the patient as well as her family. She will remain on a clear liquid diet today. She will continue with the Pepcid 20 mg twice daily and follow antireflux measures. She'll be seen in office in 4-6 weeks.
[2020-02-04 08:58] VITALS: RESP 14
[2020-02-04 09:16] VITALS: BP 117/72; PULSE 70
== END ==
LOC: ORWHC2ENDO 07:28
PROVIDERS: ATTEND Internal Medicine Gastroenterology
DX: K22.2 Esophageal obstruction (principal); K44.9 Diaphragmatic hernia without obstruction or gangrene; K21.9 Gastro-esophageal reflux disease without esophagitis; G25.81 Restless legs syndrome; G62.9 Polyneuropathy, unspecified; Z88.2 Allergy status to sulfonamides; Z79.899 Other long term (current) drug therapy
CPT/HCPCS: 88305; 43239; 43249; J2001; J2704; C1726

== ENCOUNTER → 2020-08-25 | Outpatient (CLI) | payer OTHER ==
--- NOTE | 2020-08-27 12:17 | MM ---
Reason for exam: screening (asymptomatic). History: Family history of breast cancer in sister. Physical Findings: A clinical breast exam by your physician is recommended on an annual basis and results should be correlated with mammographic findings. MG 3D Screening Mammo W/Cad Bilateral CC and MLO view(s) were taken. No prior studies available for comparison. The breast tissue is heterogeneously dense. This may lower the sensitivity of mammography. Benign vascular calcifications. Two circumscribed nodules medial and central left breast warrant further evaluation. ASSESSMENT: Incomplete: need additional imaging evaluation, BI-RAD 0 RECOMMENDATION: Special view mammogram of the left breast. (3D) Ultrasound of the left breast. [facility] will attempt to contact patient to return for supplemental views and ultrasound.
== END | disposition home or self-care (01) ==
LOC: RADMAMWWP 11:48
PROVIDERS: ATTEND Family Medicine
DX: Z12.31 Encounter for screening mammogram for malignant neoplasm of breast (principal)
CPT/HCPCS: 77063; 77067

== ENCOUNTER → 2020-09-16 | Outpatient (CLI) | payer OTHER ==
--- NOTE | 2020-09-17 11:16 | MM ---
Reason for exam: additional evaluation requested from abnormal screening. Last mammogram was performed 1 month ago. History: Patient history of other cancer. Family history of breast cancer in sister at age 20. Physical Findings: Nurse did not find any significant physical abnormalities on exam. MG 3D Work Up W/Cad LT Spot compression CC and LM view(s) were taken of the left breast. Prior study comparison: August 25, 2020, bilateral MG 3d screening mammo w/cad. No significant new findings when compared with previous films. These results were verbally communicated with the patient and result sheet given to the patient on 09/16/20. ASSESSMENT: Incomplete: need additional imaging evaluation, BI-RAD 0 RECOMMENDATION: Ultrasound of the left breast.
--- NOTE | 2020-09-17 11:18 | USB ---
Reason for exam: additional evaluation requested from abnormal screening. History: Patient history of other cancer. Family history of breast cancer in sister at age 20. US Breast Workup Limited LT Left limited breast ultrasound including focal area of concern, retroareolar and axilla demonstrates a 6 x 4 x 8mm solid, isoechoic lesion at 5 o'clock. These results were verbally communicated with the patient and result sheet given to the patient on 09/16/20. ASSESSMENT: Suspicious, BI-RAD 4 RECOMMENDATION: Ultrasound core biopsy of the left breast. Called Dr. Heath's office with mammographic findings and has scheduled an appointment for the patient for 10/15/20 at 2:[address] Cervantes. Biopsy scheduled for 10/18/20 at 10:30. PRELIMINARY REPORT CALLED AND FAXED TO DR. CERVANTES ON 09/17/20.
== END | disposition home or self-care (01) ==
LOC: RADMAMWWP 13:34
PROVIDERS: ATTEND Family Medicine
DX: R92.8 Other abnormal and inconclusive findings on diagnostic imaging of breast (principal)
CPT/HCPCS: 77065; 76642; G0279; 77061

== ENCOUNTER → 2020-10-15 | Outpatient (CLI) | payer OTHER ==
[2020-10-15 14:32] VITALS: BP 109/74; PULSE 97; RESP 16; TEMP 97.9
--- NOTE | 2020-10-15 15:06 | P.GSHP ---
History of Present Illness H&P Date: 10/15/20 Chief Complaint: Abnormal left breast ultrasound Aicha is a 55-year-old female who was seen in consultation for Dr. Stubbs regarding an ultrasound abnormality in her left breast. She underwent a bilateral mammogram on 147178. 2 circumscribed nodules medial and central left breast were identified and special view of the left breast and ultrasound of the left [place]. [place] [address] on the mammogramcystic lesions were identified but on the ultrasound she was noted to have a 6 x 8 mm solid lesion at 5:00 ultrasound-guided core biopsy was recommended. The second lesion was not identified. The patient does not feel any lumps masses or nodules of concern in her breast. She is not complaining of any nipple discharge or skin changes. She has not had any prior surgery in her breast. She is not complaining of any trauma or infection in her breast. Patient does complain of very large breast resulting in back pain. For complains of notching of her shoulders from her bra secondary to the large size of her breast. Caffeine: none Nicotine: Stopped 5 years ago Theophylline: Occasional Hormones:none Family History: sister: brain cancer brother: brain cancer brother: stomach cancer Hormonal history: Menarche: 14 AB1, breast fed: no, age at first : 23 menopause: hysterectomy at 45 for bleeding, left her ovaries BCP: 10 years Surgical history: 1. Hysterectomy 2. Right shoulder replacement 3. Left hip replacement 4. 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 Social History: smoke: 1PPD/ 12 years stopped 5 years ago alcohol: several times a week drugs: Marijuana daily for relaxation - Constitutional Constitutional: Reports sweats - EENT Eyes: right loss of vision Ears: bilateral: decreased hearing, tinnitus Ears, nose, mouth and throat: Reports headache, Denies sore throat - Breasts Breasts: bilateral: as per HPI - Cardiovascular Cardiovascular: Denies chest pain, Denies shortness of breath - Respiratory Comment: former smoker - Gastrointestinal Gastrointestinal: Denies abdominal pain, Denies diarrhea, Denies nausea, Denies vomiting - Genitourinary (Female) Genitourinary: Denies dysuria, Denies hematuria - Menstruation Menstruation: Reports post hysterectomy - Musculoskeletal Comment: arthritis, black bone disease right shoulder and left hip replacement - Integumentary Integumentary: Denies pruritus, Denies rash - Neurological Neurological: Reports as per HPI - Psychiatric Psychiatric: Reports anxiety, Reports depression - Endocrine Endocrine: Reports fatigue, Reports weight change - Hematologic/Lymphatic Comment: none - Allergic/Immunologic Allergic/Immunologic: Reports as per HPI, Reports seasonal allergies Past Medical History Past Medical History: Eye Disorder, Musculoskeletal Disorder, Osteoarthritis (OA) Additional Past Medical History / Comment(s): 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 food keeps getting stuck in throat and causes vomitting History of Any Multi-Drug Resistant Organisms: None Reported Past Surgical History: Heart Catheterization, Hysterectomy, Orthopedic Surgery Additional Past Surgical History / Comment(s): EGD w/dilatation, colonoscopy, total rt. shoulder surgery 2019, left hip replacement 2019 Past Anesthesia/Blood Transfusion Reactions: No Reported Reaction, Motion Sickness Past Psychological History: Anxiety, Depression Smoking Status: Former smoker Past Alcohol Use History: Daily Additional Past Alcohol Use History / Comment(s): Drinks 1-2 mixed drinks daily and 3-4 drinks on the weekends. QUIT SMOKING -5+ YEARS AGO Past Drug Use History: Marijuana Additional Drug Use History / Comment(s): Medical marijuana 3x week for nausea and pain - Past Family History Brother(s) Family Medical History: Cancer Additional Family Medical History / Comment(s): brain, stomach Sister(s) Family Medical History: Cancer Additional Family Medical History / Comment(s): brain Medications and Allergies Home Medications Medication Instructions Recorded Confirmed Type Citalopram Hydrobromide [CeleXA] 10 mg PO DAILY 06/13/19 10/15/20 History QUEtiapine [SEROquel] 25 mg PO HS 06/13/19 10/15/20 History Venlafaxine HCl [Effexor XR] 150 mg PO QAM 06/13/19 10/15/20 History clonazePAM [KlonoPIN] 3 mg PO HS 06/13/19 10/15/20 History Venlafaxine HCl [Effexor XR] 75 mg PO QAM 06/24/19 10/15/20 History HYDROcodone/APAP 7.5-325MG [[place] 1 each PO Q6HR PRN #28 tab 12/11/19 10/15/20 Rx 7.5] Cyclobenzaprine [Flexeril] 10 mg PO TID 09/29/20 10/15/20 History Timolol 0.25% Ophth Soln [Timoptic 1 drop BOTH EYES BID 10/15/20 10/15/20 History 0.25% Ophth Soln] Allergies Allergy/AdvReac Type Severity Reaction Status Date / Time sulfamethoxazole Allergy Rash/Hives Verified 10/15/20 14:28 [From Bactrim] trimethoprim [From Bactrim] Allergy Rash/Hives Verified 10/15/20 14:28 Surgical - Exam Vital Signs Temp Pulse Resp BP Pulse Ox 97.9 F 97 16 109/74 97 10/15/20 14:29 10/15/20 14:29 10/15/20 14:29 10/15/20 14:29 10/15/20 14:29 BMI 26.9 - General well developed, well nourished, moderate distress - Eyes normal ocular movement - ENT normal pinna, normal nares - Neck trachea midline - Respiratory normal expansion, normal respiratory effort, clear to auscultation - Cardiovascular Rhythm: regular Heart Sounds: normal: S1, S2 - Abdomen Abdomen: soft, non tender, no guarding, no rigid, no rebound - Integumentary normal turgor - Neurologic no disoriented, no combative - Musculoskeletal normal gait - Psychiatric oriented to time, oriented to person, oriented to place, speech is normal, memory intact breast exam: BRA: 50D inspection: Grade 3 ptosis bilateral Palpation: Right breast: Multiple positional exam fibrocystic changes, no dominant masses or nodules of concern Right axilla: No adenopathy of concern left breast: Multiple positional exam fibrocystic changes bilateral no dominant masses or nodules of concern particular tension at 5 o'clock position Left axilla: No adenopathy of concern Results Mammogram and ultrasound results reviewed Assessment and Plan Assessment: Impression: depression arthritis osteoporesis 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 Sales, one will be biopsied via ultrasound core biopsy the second was not seen on ultrasound and if the first lesion is negative for have a 6 month follow-up if the first lesion is positive the stereo biopsy of the second lesion more anterior lesion is recommended Plan: 1. Ultrasound-guided core biopsy left breast at least one site possibly 2 sites 2. Medical management of medical conditions 3. Follow-up after ultrasound core biopsy 4. 2 lesions were seen on mammogram when reviewed with Dr. Sales, one will be biopsied via ultrasound core biopsy the second was not seen on ultrasound and if the first lesion is negative for have a 6 month follow-up if the first lesion is positive the stereo biopsy of the second lesion more anterior lesion is recommended Benefits of the procedure were discussed with the patient. She understands and wishes to proceed. She would like to have a breast reduction done and would consider a referral to plastic surgery in the future after results of the ultrasound core biopsy obtained. If the ultrasound core biopsy is benign specific we'll wait for 6 months and repeat mammogram, if this is positive rec ommend stereo biopsy of the second area in the breast. Cc: Dr. Fournier encounter 35 minutes, > 50% of time in planning and counselling
== END | disposition home or self-care (01) ==
LOC: WWCWWP 13:58
PROVIDERS: ATTEND Surgery
DX: Z53.9 Procedure and treatment not carried out, unspecified reason (principal)

== ENCOUNTER → 2020-10-18 | Day surgery (SDC) | payer OTHER ==
[2020-10-18 09:56] VITALS: TEMP 98.2
[2020-10-18 12:54] VITALS: BP 104/70; PULSE 72; RESP 18
--- NOTE | 2020-10-18 13:18 | MM ---
EXAMINATION TYPE: MG stereo VAD BX LT DATE OF EXAM: 10/18/2020 COMPARISON: Same day ultrasound and diagnostic mammogram and older studies. CLINICAL HISTORY: Prior abnormal mammogram and ultrasound. TECHNIQUE: Stereotactic guided core biopsy of left breast with clip placement and follow-up diagnosti c mammogram.. FINDINGS: The procedure of stereotactic guided core biopsy was explained to the patient. Benefits, a lternatives, and risks were discussed. An informed consent was then obtained. Patient was originall y scheduled for ultrasound-guided core biopsy. Previously visualized lesion could not be identified t keith by 2 cat scan technologist including original scanning technologist. Scanning performed even o f more posterior tissue at area of persistent mammogram concern. Patient was told I desired sampling due to persistent mammogram lesion despite negative ultrasound and this should be done with stereotac tic guided core biopsy. Patient wished to proceed with this today instead of waiting for future date when her surgeon was available. [facility]. I performed th en performed the remainder of the procedure. A vacuum assisted biopsy gun was used to obtain multipl e core samples. The patient tolerated the procedure well without any immediate complication. The patient was kept in the radiology department for short stay after the procedure and then discharged home in stable condi tion. Targeted calcifications are identified in specimen mammogram. Post biopsy mammogram shows the clip to appear in satisfactory position relative to the targeted area of concern on the preprocedure images. Lesion is less well seen as there is moderate surrounding post procedure hematoma noted. IMPRESSION: SUCCESSFUL, UNCOMPLICATED STEREOTACTIC GUIDED CORE BIOPSY OF AREA OF CONCERN IN THE LEFT BREAST, FULL PATHOLOGY RESULTS TO FOLLOW. Low to intermediate index of suspicion noted at time of procedure.
--- NOTE | 2020-10-18 13:44 | MM ---
Reason for exam: additional evaluation requested from abnormal screening. Last mammogram was performed 1 month ago. History: Patient history of other cancer. Family history of breast cancer in sister at age 20. MG 3D Diag Mammo W/Cad LT CC and MLO view(s) were taken of the left breast. Prior study comparison: September 16, 2020, left breast MG 3d work up w/cad LT. August 25, 2020, bilateral MG 3d screening mammo w/cad. There are scattered fibroglandular densities. Finding: There is a 12 mm circumscribed oval mass in the middle posterior position of the left breast. ASSESSMENT: Suspicious, BI-RAD 4 RECOMMENDATION: Stereotactic core biopsy of the left breast. Called office with mammographic findings and has scheduled an appointment for the patient for 10/22/20 at 12:[address] Cervantes. PRELIMINARY REPORT CALLED AND FAXED TO DR. CERVANTES ON 10/18/20.
--- NOTE | 2020-10-18 14:02 | USB ---
Please see same day stereotactic guided core biopsy report for complete details. Prior visualized ult rasound lesion could not be found. BI-RADS 0 incomplete study Recommendation: Repeat diagnostic left breast mammogram.
== END ==
LOC: RADUSWWP 09:30
PROVIDERS: ATTEND Surgery
DX: D24.2 Benign neoplasm of left breast (principal); N60.12 Diffuse cystic mastopathy of left breast; Z80.3 Family history of malignant neoplasm of breast; Z85.9 Personal history of malignant neoplasm, unspecified
CPT/HCPCS: 88305; 77065; 19081; 76641; A4648; G0279; J2001; 77061

== ENCOUNTER → 2020-10-22 | Outpatient (CLI) | payer OTHER ==
[2020-10-22 12:43] VITALS: BP 103/71; PULSE 93; RESP 16; TEMP 98
--- NOTE | 2020-10-22 13:21 | P.PN ---
Subjective Progress Note Date: 10/22/20 Principal diagnosis: Stereotactic core biopsy results Aicha is a 55-year-old white female who is status post a sterotactic core biopsy on of a nodule in the left breast. Pathology revealed fibroadenoma. She initially was going to have this sampled via ultrasound-guided core biopsy however on the day of the procedure the lesion could not be seen on ultrasound. She additionally was initially noted to have 2 areas of nodularity in the left breast these are reviewed with Dr. Moyer from radiology today and the second area appeared to have dissipated. She tolerated the procedure without difficulty. She does have macromastia and is suffering from back pain and ruchi ulder notching related to the large size of her breast. Objective - Vital Signs Vital signs: Vital Signs Temp 98.0 F 10/22/20 12:41 Pulse 93 10/22/20 12:41 Resp 16 10/22/20 12:41 BP 103/71 10/22/20 12:41 Pulse Ox 98 10/22/20 12:41 Intake & Output 10/21/20 10/22/20 10/22/20 18:59 06:59 18:59 Weight 69.853 kg - Exam BMI 26.9 - Constitutional General appearance: Present: average body habitus - EENT Eyes: Present: EOMI ENT: Present: hearing grossly normal - Neck Neck: Present: normal ROM - Respiratory Respiratory: bilateral: CTA - Cardiovascular Rhythm: regular Heart sounds: normal: S1, S2 - Integumentary Integumentary Comment(s): Biopsy site left breast clean and dry, no evidence of infection or hematoma mild ecchymosis Patient has some evidence of a fungal infection between her breast - Musculoskeletal Musculoskeletal: Present: gait normal - Psychiatric Psychiatric: Present: A&O x's 3, appropriate affect, intact judgment & insight Assessment and Plan Assessment: Impression: 1. Patient status post stereotactic core biopsy of the left breast pathology consistent with fibroadenoma 2. Second area of nodularity left breast not seen on most recent radiographs 3. Fungal infection between breast Plan: 1. Repeat left breast mammogram and ultrasound in 6 months with physician exam at that time 2. Nystatin for area of infection between breast Cc: Dr. Mccormick encounter 15 minutes > 50% of time in planning and counselling
== END | disposition home or self-care (01) ==
LOC: WWCWWP 12:33
PROVIDERS: ATTEND Surgery
DX: Z53.9 Procedure and treatment not carried out, unspecified reason (principal)

== ENCOUNTER → 2021-05-18 | Outpatient (CLI) | payer OTHER ==
--- NOTE | 2021-05-19 09:04 | MM ---
Reason for exam: follow-up at short interval from prior study. Last mammogram was performed 7 months ago. History: Patient history of other cancer. Family history of breast cancer in sister at age 20. Benign MG stereo VAD BX LT of the left breast, October 18, 2020. US discontinued breast bx LT of the left breast, October 18, 2020. Physical Findings: Nurse did not find any significant physical abnormalities on exam. MG 3D Diag Mammo W/Cad LT CC and MLO view(s) were taken of the left breast. Prior study comparison: October 18, 2020, left breast MG 3d diag mammo w/cad LT. September 16, 2020, left breast MG 3d work up w/cad LT. 7mm nodule 9 o'clock, 7cm from nipple, stable, ultrasound recommended. Left post biopsy with clip at 5 o'clock, 14cm from nipple. These results were verbally communicated with the patient and result sheet given to the patient on 05/18/21. ASSESSMENT: Incomplete: need additional imaging evaluation, BI-RAD 0 RECOMMENDATION: Ultrasound of the left breast.
--- NOTE | 2021-05-19 09:06 | USB ---
Reason for exam: additional evaluation requested from abnormal screening. History: Patient history of other cancer. Family history of breast cancer in sister at age 20. Benign MG stereo VAD BX LT of the left breast, October 18, 2020. US discontinued breast bx LT of the left breast, October 18, 2020. US Breast Limited LT Left limited breast ultrasound including focal area of concern, retroareolar and axilla demonstrates no cystic or solid lesion seen. No findings for 7mm nodule on mammogram at 9 o'clock, 7cm from nipple, probably benign, not seen on ultrasound, 6 month follow up. These results were verbally communicated with the patient and result sheet given to the patient on 05/18/21. ASSESSMENT: Probably benign, BI-RAD 3 RECOMMENDATION: Follow-up diagnostic mammogram of both breasts in 6 months.
== END | disposition home or self-care (01) ==
LOC: RADMAMWWP 13:37
PROVIDERS: ATTEND Surgery
DX: N63.25 Unspecified lump in the left breast, overlapping quadrants (principal); Z85.9 Personal history of malignant neoplasm, unspecified; Z80.3 Family history of malignant neoplasm of breast
CPT/HCPCS: 77065; 76642; G0279; 77061

== ENCOUNTER → 2021-05-26 | Outpatient (CLI) | payer OTHER ==
[2021-05-26 13:52] VITALS: BP 105/70; PULSE 92; RESP 16; TEMP 98
--- NOTE | 2021-05-26 14:14 | P.PN ---
Subjective Progress Note Date: 05/26/21 Principal diagnosis: macromastia, fibrocystic breast disease Aicha is a 55-year-old female who was seen in consultation for Dr. Stubbs regarding an ultrasound abnormality in her left breast. She underwent a bilateral mammogram on . 2 circumscribed nodules medial and central left breast were identified and special view of the left breast and ultrasound of the left breast was recommended. These were performed 09-16-20. On the ultrasound she was noted to have a 6 x 8 mm solid lesion at 5:00 ultrasound- guided core biopsy was recommended. The second lesion was not identified. The patient does not feel any lumps masses or nodules of concern in her breast. She is not complaining of any nipple discharge or skin changes. She has not had any prior surgery in her breast. She is not complaining of any trauma or infection in her breast. Patient does complain of very large breast resulting in back pain. For complains of notching of her shoulders from her bra secondary to the large size of her breast. She underwent stereotactic core biopsy on . This was of the nodule in the left breast. Initially she is going to have this sampled via ultrasound however on the day of the procedure the lesion could not be seen on ultrasound. Pathology was consistent with a fibroadenoma. The patient has now a repeat left breast mammogram and ultrasound performed on 7720. The mammogram revealed a 7 mm nodule 7 cm from the nipple and the ultrasound did not show any specific cystic or solid lesion. It was felt to be probably benign BIRADS 3 and follow- up diagnostic mammogram of both breasts in 6 months was recommended. Caffeine: none Nicotine: Stopped 5 years ago Theophylline: Occasional Hormones:none Family History: sister: brain cancer brother: brain cancer brother: stomach cancer Hormonal history: Menarche: 14 AB1, breast fed: no, age at first : 23 menopause: hysterectomy at 45 for bleeding, left her ovaries BCP: 10 years Surgical history: 1. Hysterectomy 2. Right shoulder replacement 3. Left hip replacement 4. 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 Social History: smoke: 1PPD/ 12 years stopped 5 years ago alcohol: several times a week drugs: Marijuana daily for relaxation - Constitutional Constitutional: Reports sweats - EENT Eyes: right loss of vision Ears: bilateral: decreased hearing, tinnitus Ears, nose, mouth and throat: Reports headache, Denies sore throat - Breasts Breasts: bilateral: as per HPI - Cardiovascular Cardiovascular: Denies chest pain, Denies shortness of breath - Respiratory Comment: former smoker - Gastrointestinal Gastrointestinal: Denies abdominal pain, Denies diarrhea, Denies nausea, Denies vomiting - Genitourinary (Female) Genitourinary: Denies dysuria, Denies hematuria - Menstruation Menstruation: Reports post hysterectomy - Musculoskeletal Comment: arthritis, black bone disease right shoulder and left hip replacement - Integumentary Integumentary: Denies pruritus, Denies rash - Neurological Neurological: Reports as per HPI - Psychiatric Psychiatric: Reports anxiety, Reports depression - Endocrine Endocrine: Reports fatigue, Reports weight change - Hematologic/Lymphatic Comment: none - Allergic/Immunologic Allergic/Immunologic: Reports as per HPI, Reports seasonal allergies Objective - Vital Signs Vital signs: Vital Signs Temp 98.0 F 05/26/21 13:47 Pulse 92 05/26/21 13:47 Resp 16 05/26/21 13:47 BP 105/70 05/26/21 13:47 Pulse Ox 98 05/26/21 13:47 Intake & Output 05/25/21 05/26/21 05/26/21 18:59 06:59 18:59 Weight 69.853 kg - Exam BMI 27.3 - Constitutional General appearance: Present: cooperative - EENT Eyes: Present: EOMI ENT: Present: hearing grossly normal - Neck Neck: Present: normal ROM - Respiratory Respiratory: bilateral: CTA - Cardiovascular Rhythm: regular Heart sounds: normal: S1, S2 - Gastrointestinal General gastrointestinal: Present: soft - Integumentary Integumentary: Present: normal turgor - Musculoskeletal Musculoskeletal: Present: gait normal - Psychiatric Psychiatric: Present: A&O x's 3, appropriate affect, intact judgment & insight - Additional findings Additional findings: Breast Exam: BRA: sports bra 2x inspection: Macromastia, grade 3 ptosis Palpation: Right breast: Multi-positional exam fibrocystic changes, no dominant masses or nodules of concern Right axilla: No adenopathy of concern Left breast: Multi-positional exam fibrocystic changes, no dominant masses or nodules of concern Left axilla: No adenopathy of concern Assessment and Plan Assessment: Impression: 1. Bilateral macromastia with back pain and shoulder notching 2. Fibrocystic breast changes 3. 7 mm nodule found on the left breast mammogram following this conservatively Stereotactic core biopsy of the left breast fibroadenoma Plan: 1. Bilateral mammogram in 6 months with physician examined that time 2. Patient would like to have a bilateral breast reduction performed I have recommended that she see a plastic surgeon CC: Dr. Garrett
== END ==
LOC: WWCWWP 13:33
PROVIDERS: ATTEND Surgery
DX: N62 Hypertrophy of breast (principal); D24.2 Benign neoplasm of left breast; M54.9 Dorsalgia, unspecified; M25.519 Pain in unspecified shoulder; F17.210 Nicotine dependence, cigarettes, uncomplicated; F32.9 Major depressive disorder, single episode, unspecified; M19.90 Unspecified osteoarthritis, unspecified site; Z88.1 Allergy status to other antibiotic agents

== ENCOUNTER → 2021-11-25 | Outpatient (CLI) | payer OTHER ==
[2021-11-25 16:16] VITALS: BP 125/83; PULSE 87; RESP 16; TEMP 98
--- NOTE | 2021-11-25 17:13 | P.PN ---
Subjective Progress Note Date: 11/25/21 Principal diagnosis: Fibrocystic breast disease, macromastia with back pain macromastia, fibrocystic breast disease Aicha is a 55-year-old female who was seen in consultation for Dr. Stubbs regarding an ultrasound abnormality in her left breast. She underwent a bilateral mammogram on . 2 circumscribed nodules medial and central left breast were identified and special view of the left breast and ultrasound of the left breast was recommended. These were performed 09-16-20. On the ultrasound she was noted to have a 6 x 8 mm solid lesion at 5:00 ultrasound- guided core biopsy was recommended. The second lesion was not identified. The patient did not feel any lumps masses or nodules of concern in her breast. She was not complaining of any nipple discharge or skin changes. She had not had any prior surgery in her breast. She was not complaining of any trauma or infection in her breast. Patient does complain of very large breast resulting in back pain. She complained of notching of her shoulders from her bra secondary to the large size of her breast. She underwent stereotactic core biopsy on . This was of the nodule in the left breast. Initially she is going to have this sampled via ultrasound however on the day of the procedure the lesion could not be seen on ultrasound. Pathology was consistent with a fibroadenoma. The patient had a repeat left breast mammogram and ultrasound performed on 7720. The mammogram revealed a 7 mm nodule 7 cm from the nipple and the ultrasound did not show any specific cystic or solid lesion. It was felt to be probably benign BIRADS 3 and follow- up diagnostic mammogram of both breasts in 6 months was recommended. She had a bilateral mammogram on 11-21-20 which was benign BIRAD 2. The complain of any lumps masses or nodules of concern in either breast. She does continue to complain of the size of her breast and resulting back pain. Caffeine: none Nicotine: Stopped 5 years ago Theophylline: Occasional Hormones:none Family History: sister: brain cancer brother: brain cancer brother: stomach cancer Hormonal history: Menarche: 14 AB1, breast fed: no, age at first : 23 menopause: hysterectomy at 45 for bleeding, left her ovaries BCP: 10 years Surgical history: 1. Hysterectomy 2. Right shoulder replacement 3. Left hip replacement 4. 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 Social History: smoke: 1PPD/ 12 years stopped 5 years ago alcohol: several times a week drugs: Marijuana daily for relaxation - Constitutional Constitutional: Reports sweats - EENT Eyes: right loss of vision Ears: bilateral: decreased hearing, tinnitus Ears, nose, mouth and throat: Reports headache, Denies sore throat - Breasts Breasts: bilateral: as per HPI - Cardiovascular Cardiovascular: Denies chest pain, Denies shortness of breath - Respiratory Comment: former smoker - Gastrointestinal Gastrointestinal: Denies abdominal pain, Denies diarrhea, Denies nausea, Denies vomiting - Genitourinary (Female) Genitourinary: Denies dysuria, Denies hematuria - Menstruation Menstruation: Reports post hysterectomy - Musculoskeletal Comment: arthritis, black bone disease right shoulder and left hip replacement - Integumentary Integumentary: Denies pruritus, Denies rash - Neurological Neurological: Reports as per HPI - Psychiatric Psychiatric: Reports anxiety, Reports depression - Endocrine Endocrine: Reports fatigue, Reports weight change - Hematologic/Lymphatic Comment: none - Allergic/Immunologic Allergic/Immunologic: Reports as per HPI, Reports seasonal allergies Objective - Vital Signs Vital signs: Vital Signs Temp 98.0 F 11/25/21 16:13 Pulse 87 11/25/21 16:13 Resp 16 11/25/21 16:13 BP 125/83 11/25/21 16:13 Pulse Ox Intake & Output 11/24/21 11/25/21 11/25/21 18:59 06:59 18:59 Weight 69.853 kg - Exam BMI 27.3 - Constitutional General appearance: Present: cooperative - EENT Eyes: Present: EOMI ENT: Present: hearing grossly normal - Neck Neck: Present: normal ROM - Respiratory Respiratory: bilateral: CTA - Cardiovascular Rhythm: regular Heart sounds: normal: S1, S2 - Gastrointestinal General gastrointestinal: Present: soft - Integumentary Integumentary: Present: normal turgor - Musculoskeletal Musculoskeletal: Present: gait normal - Psychiatric Psychiatric: Present: A&O x's 3, appropriate affect, intact judgment & insight - Additional findings Additional findings: Breast Exam: BRA: 50D inspection: bilateral grade 3 ptosis palpation: right breast: Multi-positional exam fibrocystic changes no dominant masses or nodules of concern Right axilla: No adenopathy of concern Left breast colon was a positional exam fibrocystic changes no dominant masses or nodules of concern Left axilla: No adenopathy of concern Assessment and Plan Assessment: Impression: Fibrocystic breast changes Macromastia with back pain Fungal infection under her right breast Plan: Bilateral mammogram in 1 year with physician exam Nystatin for fungal infection Patient would like to have bilateral breast reduction at this time would refer to plastic surgery CC: Dr. Heath
== END ==
LOC: WWCWWP 14:56
PROVIDERS: ATTEND Surgery
DX: N60.11 Diffuse cystic mastopathy of right breast (principal); N60.12 Diffuse cystic mastopathy of left breast; N62 Hypertrophy of breast; B36.8 Other specified superficial mycoses; F32.A Depression, unspecified; M19.90 Unspecified osteoarthritis, unspecified site; Z87.891 Personal history of nicotine dependence; Z88.2 Allergy status to sulfonamides

== ENCOUNTER → 2021-12-03 | Outpatient (CLI) | payer OTHER ==
--- NOTE | 2021-12-04 15:29 | MR ---
EXAMINATION TYPE: MR cspine/lspine wo con DATE OF EXAM: 12/03/2021 COMPARISON: Lumbar MRI 04/21/2013 HISTORY: Neck and lower back pain, headaches, BLE/BUE radiculopathy. TECHNIQUE: Multiplanar, multisequence imaging of the cervical and lumbar spine is performed without I V contrast. FINDINGS: Cervical spine MRI: Cervical vertebral bodies show preserved height and alignment. Loss of disc heigh t signal is greatest at C5-6, there is associated spondylosis with endplate discogenic marrow signal change. No significant spinal stenosis. Cervical cord signal is maintained. C4-5 show some uncovertebral joint hypertrophy encroaches somewhat on the foramina. C5-6 uncovertebral joint hypertrophy and facet arthropathy causing encroachment on the left greater t javed right. No evident disc herniation. C6-7 just posterior extension disc complex causing mild anterior mass effect on the thecal sac. There is some uncovertebral joint hypertrophy causing some minimal foraminal encroachment bilaterally. Remaining levels are essentially unremarkable. IMPRESSION: Mild degenerative disc disease. Foraminal encroachment as described. MRI lumbar spine: There may be transitional segment at the lumbosacral junction There is a Schmorl's node at the superior endplate of L2. Multilevel spondylosis with endplate discog enic marrow signal changes are present. There is no significant spinal stenosis or foraminal encroach ment. The conus is at L1. Lumbar vertebral bodies show preserved height and alignment. There is some mild loss of disc height signal at intervertebral levels consistent with disc desiccation and degener ative disc disease. There is some atrophy or fatty replacement of the psoas muscle on the left. L5-S1 shows a posterior disc bulge which is minimal. There is facet arthropathy change. L4-5 shows a posterior disc bulge contacting the anterior thecal sac. There is facet arthropathy with hypertrophy ligamentum flavum. L3-4 is unremarkable. L2-3 and L1 to show no significant disc herniation. IMPRESSION: Mild degenerative disc disease, there is facet arthropathy change. Correlate with plain f ilm prior to any intervention..
== END | disposition home or self-care (01) ==
LOC: RADMRIMAIN 13:24
PROVIDERS: ATTEND Psychiatry & Neurology Clinical Neurophysiology
DX: M47.22 Other spondylosis with radiculopathy, cervical region (principal); M50.122 Cervical disc disorder at C5-C6 level with radiculopathy; M47.26 Other spondylosis with radiculopathy, lumbar region; M51.16 Intervertebral disc disorders with radiculopathy, lumbar region
CPT/HCPCS: 72141; 72148

== ENCOUNTER → 2022-11-23 | Outpatient (CLI) | payer OTHER ==
--- NOTE | 2022-11-24 08:27 | MM ---
Reason for Exam: Screening (asymptomatic). Last screening mammogram was performed 12 month(s) ago. Patient History: Menarche at age 14. First Full-Term at age 22. Hysterectomy at age 45. Other cancer. 10/18/2020, Benign Core Biopsy on the left side. 10/18/2020, US discontinued breast bx LT on the left side. Sister had breast cancer, age 20. Risk Values: Diamond 5 year model risk: 2.7%. NCI Lifetime model risk: 17.6%. Prior Study Comparison: 08/25/2020 Bilateral Screening Mammogram, [facility]. 09/16/2020 Left Diagnostic Mammogram, [facility]. 10/18/2020 Left Diagnostic Mammogram, [facility]. 05/18/2021 Left Diagnostic Mammogram, [facility]. 11/21/2021 Bilateral Diagnostic Mammogram, [facility]. Tissue Density: There are scattered fibroglandular densities. Findings: Analyzed By CAD. There is no suspicious group of microcalcifications in either breast. No new suspicious mass within the right breast. Benign vascular calcifications within both breasts. More prominent focal asymmetry demonstrated within the lower inner left breast at middle depth. Overall Assessment: Incomplete: need additional imaging evaluation, BI-RAD 0 Management: Diagnostic Mammogram of the left breast. A clinical breast exam by your physician is recommended on an annual basis and results should be correlated with mammographic findings. [facility] will attempt to contact patient to return for supplemental views and ultrasound if indicated. Electronically signed and approved by: Durga Brown D.O.
== END | disposition home or self-care (01) ==
LOC: RADMAMWWP 07:54
PROVIDERS: ATTEND Surgery
DX: Z12.31 Encounter for screening mammogram for malignant neoplasm of breast (principal); Z80.3 Family history of malignant neoplasm of breast; Z98.890 Other specified postprocedural states
CPT/HCPCS: 77063; 77067

== ENCOUNTER → 2023-04-30 | Outpatient (CLI) | payer OTHER ==
--- NOTE | 2023-04-30 14:41 | US ---
EXAMINATION TYPE: US extremity nonvasc mass LT DATE OF EXAM: 04/30/2023 COMPARISON: NONE CLINICAL INDICATION: Female, 58 years old with history of R22.42 Left thigh soft tissue; Lump upper l eft thigh. TECHNIQUE: Left upper inner thigh area of palpable abnormality was interrogated with grayscale and c olor Doppler imaging. FINDINGS: Hypoechoic area seen left upper thigh area of lump measuring 3.1 x 1.0 cm no internal color Doppler f low. This is immediately under the skin approximately 2 mm. IMPRESSION: Finding within the left upper thigh area favored represent lipomatous lesion such as lipo ma.
== END | disposition home or self-care (01) ==
LOC: RADUSWWP 13:53
PROVIDERS: ATTEND Family Medicine
DX: R22.42 Localized swelling, mass and lump, left lower limb (principal)

== ENCOUNTER → 2023-06-08 | Outpatient (CLI) | payer OTHER ==
[2023-06-08 10:45] VITALS: BP 111/72; PULSE 85; RESP 18; TEMP 97.7
--- NOTE | 2023-06-08 11:10 | P.PN ---
Subjective Progress Note Date: 06/08/23 Fibrocystic breast disease, macromastia with back pain macromastia, fibrocystic breast disease Patient is a 58-year-old female who was seen initially in consultation for Dr. Gopal Feng regarding an ultrasound abnormality in her left breast. She underwent a bilateral mammogram on [id number]. 2 circumscribed nodules medial and central left breast were identified and special view of the left breast was recommended as well [place] [address]. On the ultrasound she was noted to have a 6 x 8 mm solid lesion at 5:00 and ultrasound core biopsy was recommended. Second lesion was not identified. The [place] [id number]. This was of the nodule of the left breast. Initially she was going to have this sampled via ultrasound however the day of the procedure the lesion could not be seen on ultrasound. Pathology was consistent with a fibroadenoma. The patient had repeat left breast mammogram and ultrasound performed and 7721. This revealed a 7 mm nodule 7 cm from the nipple and ultrasound did not show any specific lesions. Was felt to be probably benign BIRADS 3 and follow-up diagnostic mammogram of both breasts in 6 months was recommended. [place] [address] which was BIRADS 2. [place] [address]. On this it was felt to be dilated serially diagnostic mammogram of the left breast was recommended. Diagnostic mammogram of the left breast as well as diagnostic ultrasound were performed on 3122. The mammogram revealed a persistent 1.2 x 0.5 cm area of increased density left breast corresponding to a previous abnormality. This and completely displaced on compression. She subsequently underwent of left breast ultrasound which revealed no solid or cystic masses. This was felt to be BIRADS 3. Repeat mammogram of the left breast in 6 months was recommended. This will be in September 2023. Patient is not complaining of any new lumps masses or nodules of concern in either breast. She is not complaining of any nipple discharge or skin changes. She continues to complain of back pain related to the size of her breast, she has bilateral shoulder notching, she has difficulty finding clothes to fit, she complains of her breast pulling her forward and exacerbating back pain. Caffeine: none Nicotine: Stopped 5 years ago Theophylline: Occasional Hormones:none Family History: sister: brain cancer brother: brain cancer brother: stomach cancer Hormonal history: Menarche: 14 AB1, breast fed: no, age at first : 23 menopause: hysterectomy at 45 for bleeding, left her ovaries BCP: 10 years Surgical history: 1. Hysterectomy 2. Right shoulder replacement 3. Left hip replacement 4. 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 Social History: smoke: 1PPD/ 12 years stopped 5 years ago alcohol: several times a week drugs: Marijuana daily for relaxation - Constitutional Constitutional: Reports sweats - EENT Eyes: right loss of vision Ears: bilateral: decreased hearing, tinnitus Ears, nose, mouth and throat: Reports headache, Denies sore throat - Breasts Breasts: bilateral: as per HPI - Cardiovascular Cardiovascular: Denies chest pain, Denies shortness of breath - Respiratory Comment: former smoker - Gastrointestinal Gastrointestinal: Denies abdominal pain, Denies diarrhea, Denies nausea, Denies vomiting - Genitourinary (Female) Genitourinary: Denies dysuria, Denies hematuria - Menstruation Menstruation: Reports post hysterectomy - Musculoskeletal Comment: arthritis, black bone disease right shoulder and left hip replacement - Integumentary Integumentary: Denies pruritus, Denies rash - Neurological Neurological: Reports as per HPI - Psychiatric Psychiatric: Reports anxiety, Reports depression - Endocrine Endocrine: Reports fatigue, Reports weight change - Hematologic/Lymphatic Comment: none - Allergic/Immunologic Allergic/Immunologic: Reports as per HPI, Reports seasonal allergies Objective - Vital Signs Vital signs: Vital Signs Temp 97.7 F 06/08/23 10:42 Pulse 85 06/08/23 10:42 Resp 18 06/08/23 10:42 BP 111/72 06/08/23 10:42 Pulse Ox 98 06/08/23 10:42 FiO2 Intake & Output 06/07/23 06/08/23 06/08/23 18:59 06:59 18:59 Weight 67.132 kg - Constitutional General appearance: Present: cooperative - EENT Eyes: Present: EOMI ENT: Present: hearing grossly normal - Neck Neck: Present: normal ROM - Respiratory Respiratory: bilateral: CTA - Cardiovascular Rhythm: regular Heart sounds: normal: S1, S2 - Gastrointestinal General gastrointestinal: Present: soft - Integumentary Integumentary: Present: normal turgor - Musculoskeletal Musculoskeletal: Present: gait normal - Psychiatric Psychiatric: Present: A&O x's 3, appropriate affect, intact judgment & insight - Additional findings Additional findings: Breast Exam: BRA: 50G inspection: bilateral grade 3 ptosis palpation: right breast: Multi-positional exam fibrocystic changes no dominant masses or nodules of concern Right axilla: No adenopathy of concern Left breast: multi-positional exam fibrocystic changes no dominant masses or nodules of concern Left axilla: No adenopathy of concern Assessment and Plan Assessment: Impression: Fibrocystic breast changes Macromastia with back pain Plan: Bilateral mammogram November with appointment at that time Patient would like to have bilateral breast reduction at this time would refer to plastic surgery CC: Dr. Heath
== END ==
LOC: WWCWWP 09:44
PROVIDERS: ATTEND Surgery
DX: Z12.31 Encounter for screening mammogram for malignant neoplasm of breast (principal); N60.19 Diffuse cystic mastopathy of unspecified breast; N62 Hypertrophy of breast; M19.90 Unspecified osteoarthritis, unspecified site; F32.A Depression, unspecified; Z87.891 Personal history of nicotine dependence; Z96.642 Presence of left artificial hip joint; Z88.2 Allergy status to sulfonamides

== ENCOUNTER 2023-10-08 06:00 | Day surgery (SDC) | payer OTHER ==
[~2023-10-08 06:00] MED LIST changes: +ACETAMINOPHEN TAB 500 MG TAB PO PRN; +DEXAMETHASONE SOD PHOSPHATE 4 MG/ML 1 ML VIAL IV ONE; +HEPARIN SODIUM,PORCINE/PF 5,000 UNIT/0.5 ML SYRINGE SQ PRN; +HYDROmorphone 0.5 MG/0.5 ML SYRINGE IVP PRN; -LIDOCAINE 1% INJ 10MG/ML (20 ML MDV) ONE; +ONDANSETRON 4 MG/2 ML VIAL IVP ONE; -PROPOFOL 10 MG/ML 20 ML VIAL IV ONE; +Pre Op ABX Message 1 EACH MISC MISCELLANE ONE; +droPERidol 5 MG/2 ML VIAL IVP PRN
[2023-10-08] MEDS ORDERED: FAMOTIDINE 20 MG/2 ML VIAL IVP ONE (06:55)
[2023-10-08 06:56] VITALS: RESP 16; TEMP 98
[2023-10-08] MEDS ORDERED: ceFAZolin 1,000 MG VIAL ONE (07:27)
[2023-10-08] MEDS ORDERED: PROPOFOL 10 MG/ML 20 ML VIAL IV ONE (07:27)
[2023-10-08] MEDS ORDERED: SODIUM CHLORIDE 0.9% 100 ML BAG ONE (07:27)
[2023-10-08] MEDS ORDERED: MIDAZOLAM 2 MG/2 ML VIAL ONE (07:27)
[2023-10-08] MEDS ORDERED: LIDOCAINE 1% INJ 10MG/ML (20 ML MDV) ONE (07:27)
--- NOTE | 2023-10-08 07:29 | P.GSHP ---
History of Present Illness H&P Date: 10/08/23 Chief Complaint: Left thigh lipoma 58-year-old female here for lipoma excision. Present for the last several years. Increasing in size. Increasing pain. 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 shoulder surgery 2019, left hip replacement 2019 Past Anesthesia/Blood Transfusion Reactions: No Reported Reaction, Motion Sickness Smoking Status: Former smoker - Past Family History Brother(s) Family Medical History: Cancer Additional Family Medical History / Comment(s): # 1 brain,. # 2 stomach Sister(s) Family Medical History: Cancer Additional Family Medical History / Comment(s): brain Medications and Allergies Home Medications Medication Instructions Recorded Confirmed Type Citalopram Hydrobromide [CeleXA] 10 mg PO QAM 06/13/19 10/08/23 History QUEtiapine [SEROquel] 50 mg PO HS 06/13/19 10/08/23 History Venlafaxine HCl [Effexor XR] 150 mg PO QAM 06/13/19 10/08/23 History clonazePAM [KlonoPIN] 3 mg PO HS 06/13/19 10/08/23 History Venlafaxine HCl [Effexor XR] 75 mg PO QAM 06/24/19 10/08/23 History Cyclobenzaprine [Flexeril] 10 mg PO TID 09/29/20 10/08/23 History Timolol 0.25% Ophth Soln [Timoptic 1 drop BOTH EYES BID 10/15/20 10/08/23 History 0.25% Ophth Soln] Mv-Mn/FA/Bl Coh/Isoflav/Jujube 1 tab PO DAILY 09/01/22 10/08/23 History [Estroven Menopause Caplet] Liver Aid 1 tab PO DAILY 11/10/22 10/08/23 History Pantoprazole Sodium [Protonix] 40 mg PO BID 11/10/22 10/08/23 History Psyllium Husk [Metamucil] 0.4 gm PO DAILY PRN 11/10/22 10/08/23 History HYDROcodone/APAP 10-325MG [Sandstone 1 tab PO Q6HR PRN 09/12/23 10/08/23 History 10-325] Ibuprofen [Motrin Ib] 200 mg PO DIRECTED PRN 10/01/23 10/08/23 History Allergies Allergy/AdvReac Type Severity Reaction Status Date / Time sulfamethoxazole Allergy Rash/Hives Verified 10/08/23 06:51 [From Bactrim] trimethoprim [From Bactrim] Allergy Rash/Hives Verified 10/08/23 06:51 Surgical - Exam Vital Signs Temp Pulse Resp BP Pulse Ox 98 F 82 16 116/80 96 10/08/23 06:39 10/08/23 06:39 10/08/23 06:39 10/08/23 06:39 10/08/23 06:39 Physical exam: General: Well-developed, well-nourished HEENT: Normocephalic, sclerae nonicteric Abdomen: Nontender, nondistended Extremities: No edema, 3 x 4 cm lipoma left thigh Neuro: Alert and oriented Assessment and Plan (1) Lipoma of left thigh Narrative/Plan: 58-year-old female with left thigh lipoma. We'll proceed with surgical excision Current Visit: Yes Status: Acute Code(s): D17.24 - BENIGN LIPOMATOUS NEOPLASM OF SKIN, SUBCU OF LEFT LEG SNOMED Code(s): 121253362
[2023-10-08] MEDS ORDERED: SODIUM CHLORIDE 0.9% 100 ML with ceFAZolin 2,000 MG IV ONE ×2 (07:37)
[2023-10-08] MEDS ORDERED: BUPIVACAINE (PF) 0.25% 30 ML VIAL SQ ONE ×2 (07:45→07:46)
[2023-10-08] MEDS ORDERED: HYDROcodone/APAP 5-325MG 1 EACH TAB PO PRN (08:15)
[2023-10-08] MEDS ORDERED: NALOXONE 0.4 MG/ML 1 ML VIAL IV PRN (08:15)
--- NOTE | 2023-10-08 08:17 | P.OP ---
Date of Procedure: 10/08/23 Procedure(s) Performed: PREOPERATIVE DIAGNOSIS: Left thigh lipoma POSTOPERATIVE DIAGNOSIS: Left thigh lipoma PROCEDURE: Excision left thigh lipoma with intermediate closure SURGEON: Jan EBL: 2 mL ANESTHESIA: Sedation and local COMPLICATIONS: None OPERATIVE PROCEDURE: Patient placed in the supine position. Left proximal thigh prepped and draped sterilely. An oblique incision made overlying the palpable mass. The palpable mass was excised using both blunt dissection and cautery. This measured 3.5 x 4.5 cm. Sent to pathology. Subcutaneous tissues closed using interrupted 3-0 Vicryl sutures. Skin closed using a running 4-0 Monocryl suture. Skin glue and sterile dressings applied. DISPOSITION: Stable to recovery room
[2023-10-08 08:25] VITALS: BP 101/70; PULSE 78
== END 2023-10-08 08:35 | disposition home or self-care (01) ==
LOC: OR 06:00
PROVIDERS: ATTEND Surgery
DX: D17.24 Benign lipomatous neoplasm of skin and subcutaneous tissue of left leg (principal); M19.90 Unspecified osteoarthritis, unspecified site; H57.9 Unspecified disorder of eye and adnexa; M79.9 Soft tissue disorder, unspecified; M81.0 Age-related osteoporosis without current pathological fracture; G25.81 Restless legs syndrome; K21.9 Gastro-esophageal reflux disease without esophagitis; Z87.891 Personal history of nicotine dependence; Z79.899 Other long term (current) drug therapy; Z88.2 Allergy status to sulfonamides; Z88.1 Allergy status to other antibiotic agents; Z98.890 Other specified postprocedural states; Z96.642 Presence of left artificial hip joint
CPT/HCPCS: 27337; 88304; J2250; J1100; J2405; J0690; J2001; J3490; J2704; J1644; J0665

== ENCOUNTER → 2024-11-21 | Outpatient (CLI) | payer OTHER ==
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
== END | disposition home or self-care (01) ==
LOC: RADCTMAIN 10:40
PROVIDERS: ATTEND Psychiatry & Neurology Clinical Neurophysiology
DX: M50.322 Other cervical disc degeneration at C5-C6 level (principal); M47.812 Spondylosis without myelopathy or radiculopathy, cervical region; M47.816 Spondylosis without myelopathy or radiculopathy, lumbar region; M43.12 Spondylolisthesis, cervical region; R42 Dizziness and giddiness
CPT/HCPCS: 70450; 72040; 72100